=== PATIENT | male | born 1955 | race American Indian/Alaskan Native ===

== ENCOUNTER 2017-07-24 12:11 | Emergency (ER) | payer BC, OTHER ==
[2017-07-24 12:18] VITALS: BP 170/79
--- NOTE | 2017-07-24 12:39 | EDM.PDOC ---
ED HPI GENERAL MEDICAL PROBLEM - General Chief Complaint: Eye Problems Stated Complaint: [id number] SORE ABOVE EYELID Time Seen by Provider: 07/24/17 12:30 Source of Information: Reports: Patient History Limitations: Reports: No Limitations - History of Present Illness INITIAL COMMENTS - FREE TEXT/NARRATIVE: This 62 yo male patient reports to the ED with swelling of his right upper eyelid. The patient reports he has noticed these symptoms for the past 4 days. The patient called the Clinic, but there were no openings. Duration: Day(s): (4), Constant, Getting Worse Location: Reports: Face (right upper eyelid) Quality: Reports: Ache, Dull Severity: Moderate Improves with: Reports: None Worsens with: Reports: None Associated Symptoms: Reports: No Other Symptoms Right Eye Pain Score (Numeric/FACES): 2 - Related Data Allergies Allergy/AdvReac Type Severity Reaction Status Date / Time No Known Allergies Allergy Verified 07/24/17 12:17 Home Meds: Home Meds Lisinopril 10 mg PO DAILY 03/25/15 [History] Insulin Detemir [Levemir Flextouch] 20 unit SQ DAILY 10/17/15 [History] metFORMIN [Glucophage XR] 500 mg PO BIDMEALS 10/17/15 [History] Past Medical History HEENT History: Reports: None Cardiovascular History: Reports: Hypertension Gastrointestinal History: Reports: None Genitourinary History: Reports: None Musculoskeletal History: Reports: None Neurological History: Reports: None Psychiatric History: Reports: None Endocrine/Metabolic History: Reports: Diabetes, Type II Hematologic History: Reports: None Immunologic History: Reports: None Oncologic (Cancer) History: Reports: None Other Dermatologic History: has had a previous abcesss - Infectious Disease History Infectious Disease History: Reports: Chicken Pox - Past Surgical History Head Surgeries/Procedures: Reports: None Social & Family History - Family History Family Medical History: Noncontributory - Tobacco Use Smoking Status *Q: Current Every Day Smoker Years of Tobacco use: 40 Packs/Tins Daily: 0.5 Used Tobacco, but Quit: No Month Tobacco Last Used: 3 weeks ago Second Hand Smoke Exposure: Yes - Caffeine Use Caffeine Use: Reports: Soda - Alcohol Use Days Per Week of Alcohol Use: 1 Number of Drinks Per Day: 8 Total Drinks Per Week: 8 - Recreational Drug Use Recreational Drug Use: No - Living Situation & Occupation Living situation: Reports: with Family ED ROS GENERAL - Review of Systems Review Of Systems: ROS reveals no pertinent complaints other than HPI. ED EXAM GENERAL W FULL EYE - Physical Exam Exam: See Below Exam Limited By: No Limitations General Appearance: Alert, WD/WN, No Apparent Distress Eye Exam: Right Eye: Other (Hordoleum right upper eyelid), Bilateral Eye: EOMI, PERRL Eyelids: Right: Stye Conjunctiva & Sclera: Bilateral: Normal Appearance Cornea Exam: Bilateral: Normal Appearance Extraocular Movements: Bilateral: Intact Pupils: Normal Accommodation Pupillary Size: Bilateral: 4 mm Pupillary Reaction: Bilateral: Brisk Ears: Normal External Exam, Normal Canal, Hearing Grossly Normal, Normal TMs Nose: Normal Inspection, Normal Mucosa, No Blood Throat/Mouth: Normal Inspection, Normal Lips, Normal Teeth, Normal Gums, Normal Oropharynx, Normal Voice, No Airway Compromise Head: Atraumatic, Normocephalic Neck: Normal Inspection, Supple, Non-Tender, Full Range of Motion Respiratory/Chest: No Respiratory Distress, Lungs Clear, Normal Breath Sounds, No Accessory Muscle Use, Chest Non-Tender Cardiovascular: Normal Peripheral Pulses, Regular Rate, Rhythm, No Edema, No Gallop, No JVD, No Murmur, No Rub GI/Abdominal: Normal Bowel Sounds, Soft, Non-Tender, No Organomegaly, No Distention, No Abnormal Bruit, No Mass (Male) Exam: Deferred Rectal (Males) Exam: Deferred Back Exam: Normal Inspection, Full Range of Motion, NT Extremities: Normal Inspection, Normal Range of Motion, Non-Tender, Normal Capillary Refill, No Pedal Edema Neurological: Alert, Oriented, CN II-XII Intact, Normal Cognition, Normal Gait, Normal Reflexes, No Motor/Sensory Deficits Psychiatric: Normal Affect, Normal Mood Skin Exam: Warm, Dry, Intact, Normal Color, No Rash Lymphatic: No Adenopathy Course - Vital Signs Last Recorded V/S: Last Vital Signs Temp 36.4 C 07/24/17 12:17 Pulse 91 07/24/17 12:17 Resp 18 07/24/17 12:17 BP 170/79 H 07/24/17 12:17 Pulse Ox 97 07/24/17 12:17 Departure - Departure Time of Disposition: 12:37 Disposition: Home, Self-Care 01 Condition: Fair Clinical Impression: Hordeolum externum (stye) Qualifiers: Laterality: right Eyelid: upper Qualified Code(s): H00.011 - Hordeolum externum right upper eyelid - Discharge Information Instructions: Stye Care Plan Goals: The patient was advised of the examination results during the visit. The patient was encouraged to use a warm pack to his right upper eyelid over the next 4-7 days. If the patient has additional swelling, or further complications , the patient should follow-up with his primary care facility or return to the emergency department.
== END 2017-07-24 12:52 | disposition home or self-care (01) ==
LOC: DL.ED 12:11
DX: H00.011 Hordeolum externum right upper eyelid (principal); I10 Essential (primary) hypertension; E11.9 Type 2 diabetes mellitus without complications; F17.210 Nicotine dependence, cigarettes, uncomplicated; Z79.4 Long term (current) use of insulin; Z79.899 Other long term (current) drug therapy
CPT/HCPCS: 99283

== ENCOUNTER 2017-11-21 04:50 | Emergency (ER) | payer OTHER ==
[2017-11-21] MEDS ORDERED: Bacitracin/Polymyxin B Ophth Oint 3.5 GM Tube EYELF ONE (04:51)
[2017-11-21 04:59] VITALS: BP 146/71
[2017-11-21] MEDS ORDERED: Amoxicillin/Clavulanate K 875-125 MG Tab PO ONE (05:19)
--- NOTE | 2017-11-21 05:26 | EDM.PDOC ---
ED HPI GENERAL MEDICAL PROBLEM - General Chief Complaint: Eye Problems Stated Complaint: EYE [id number] Time Seen by Provider: 11/21/17 04:55 Source of Information: Reports: Patient History Limitations: Reports: No Limitations - History of Present Illness INITIAL COMMENTS - FREE TEXT/NARRATIVE: C/O swelling to left upper eyelid worsening since yesterday, Eyelid itchy and rubbing then lid started swelling - Related Data Allergies Allergy/AdvReac Type Severity Reaction Status Date / Time No Known Allergies Allergy Verified 07/24/17 12:17 Home Meds: Home Meds Lisinopril 10 mg PO DAILY 03/25/15 [History] Insulin Detemir [Levemir Flextouch] 20 unit SQ DAILY 10/17/15 [History] metFORMIN [Glucophage XR] 500 mg PO BIDMEALS 10/17/15 [History] Past Medical History HEENT History: Reports: None Cardiovascular History: Reports: Hypertension Gastrointestinal History: Reports: None Genitourinary History: Reports: None Musculoskeletal History: Reports: None Neurological History: Reports: None Psychiatric History: Reports: None Endocrine/Metabolic History: Reports: Diabetes, Type II Hematologic History: Reports: None Immunologic History: Reports: None Oncologic (Cancer) History: Reports: None Dermatologic History: Reports: Other (See Below) Other Dermatologic History: has had a previous abcesss - Infectious Disease History Infectious Disease History: Reports: Chicken Pox - Past Surgical History Head Surgeries/Procedures: Reports: None Social & Family History - Family History Family Medical History: Noncontributory - Tobacco Use Smoking Status *Q: Current Every Day Smoker Years of Tobacco use: 40 Packs/Tins Daily: 0.5 Used Tobacco, but Quit: No Month/Year Tobacco Last Used: 3 weeks ago Second Hand Smoke Exposure: Yes - Caffeine Use Caffeine Use: Reports: Soda - Alcohol Use Days Per Week of Alcohol Use: 1 Number of Drinks Per Day: 8 Total Drinks Per Week: 8 - Recreational Drug Use Recreational Drug Use: No - Living Situation & Occupation Living situation: Reports: with Family ED ROS GENERAL - Review of Systems Review Of Systems: ROS reveals no pertinent complaints other than HPI. ED EXAM GENERAL W FULL EYE - Physical Exam Exam: See Below Exam Limited By: No Limitations General Appearance: Alert, No Apparent Distress Eye Exam: Bilateral Eye: EOMI, PERRL, Other (left upper elid swollen red droooping) Eyelids: Left: Edema, Erythema Conjunctiva & Sclera: Bilateral: Normal Appearance Extraocular Movements: Bilateral: Intact Ears: Normal External Exam Nose: Normal Inspection Throat/Mouth: Normal Voice Neck: Full Range of Motion Respiratory/Chest: No Respiratory Distress Cardiovascular: Normal Peripheral Pulses, Regular Rate, Rhythm Neurological: Alert, Oriented, Normal Cognition Skin Exam: Warm, Dry, Intact, Erythema (left upper eyelid) Course - Vital Signs Last Recorded V/S: Last Vital Signs Temp 97.6 F 11/21/17 04:52 Pulse 79 11/21/17 04:52 Resp 19 11/21/17 04:52 BP 146/71 H 11/21/17 04:52 Pulse Ox 99 11/21/17 04:52 - Orders/Labs/Meds Meds: Medications Discontinued Medications Generic Name Dose Route Start Last Admin Trade Name Freq PRN Reason Stop Dose Admin Amoxicillin/Clavulanate Potassium 1 tab 11/21/17 05:19 11/21/17 05:25 Augmentin 875 Mg/125 Mg PO 11/21/17 05:20 1 tab ONETIME ONE Administration Bacitracin/Polymyxin B Sulfate Confirm 11/21/17 05:33 Polysporin Ophth Oint Administered 11/21/17 05:34 Dose 3.5 gm .ROUTE .STK-MED ONE Departure - Departure Time of Disposition: 05:23 Disposition: Home, Self-Care 01 Condition: Good Clinical Impression: Blepharitis of eyelid of left eye Qualifiers: Blepharitis type: unspecified type Eyelid: upper Qualified Code(s): H01.004 - Unspecified blepharitis left upper eyelid - Discharge Information Instructions: Blepharitis, [id number] Forms: ED Department Discharge Additional Instructions: Continue warm pack 3 times daily Augmentin 875/125 one twice daily for one week polymyxinB/Trimetoprim eye ointment , apply thin layer to upper lid three times daily for 5 days follow up if increased swelling or fever
[2017-11-21] MEDS ORDERED: Bacitracin/Polymyxin B Ophth Oint 3.5 GM Tube ONE (05:33)
== END 2017-11-21 05:40 | disposition home or self-care (01) ==
LOC: DL.ED 04:50
DX: H01.004 Unspecified blepharitis left upper eyelid (principal); I10 Essential (primary) hypertension; E11.9 Type 2 diabetes mellitus without complications; F17.210 Nicotine dependence, cigarettes, uncomplicated; Z79.899 Other long term (current) drug therapy; Z79.4 Long term (current) use of insulin
CPT/HCPCS: 99282; A9270

== ENCOUNTER 2020-05-17 17:00 | Emergency (ER) | payer MEDICAID, OTHER | END 2020-05-17 17:50 | disposition left against medical advice (07) | LOC: DL.ED 17:00 | DX: Z53.21 Procedure and treatment not carried out due to patient leaving prior to being seen by health care provider (principal) ==

== ENCOUNTER 2020-05-23 16:42 | Emergency (ER) | payer MEDICAID ==
[2020-05-23 16:55] VITALS: BP 162/68; PULSE 108
--- NOTE | 2020-05-23 17:43 | EDM.PDOC ---
ED HPI GENERAL MEDICAL PROBLEM - General Chief Complaint: General Time Seen by Provider: 05/23/20 17:50 Source of Information: Reports: Patient, EMS, EMS Notes Reviewed, RN, RN Notes Reviewed - History of Present Illness INITIAL COMMENTS - FREE TEXT/NARRATIVE: Patient presents to the ED via EMS for cough and fever. Per the patient, he tested positive for COVID on 05/18/20. He attests to persistent cough, headache, fever, and muscle aches. He states these symptoms began about seven days ago, 05/16/20. He denies chest pain, shortness of breath, palpitations, nausea, vomiting, or diarrhea. He states he has taken Tylenol 500mg x1 for headache/fever without alleviation of symptoms. - Related Data Allergies Allergy/AdvReac Type Severity Reaction Status Date / Time No Known Allergies Allergy Verified 05/23/20 16:50 Home Meds: Home Meds Insulin Detemir [Levemir Flextouch] 42 unit SQ DAILY 10/17/15 [History] metFORMIN [Glucophage XR] 500 mg PO BIDMEALS 10/17/15 [History] Losartan [Cozaar] 25 mg PO DAILY 05/23/20 [History] Past Medical History HEENT History: Reports: None Cardiovascular History: Reports: Hypertension Respiratory History: Reports: None Gastrointestinal History: Reports: None Genitourinary History: Reports: None Musculoskeletal History: Reports: None Neurological History: Reports: None Psychiatric History: Reports: None Endocrine/Metabolic History: Reports: Diabetes, Type II Hematologic History: Reports: None Immunologic History: Reports: None Oncologic (Cancer) History: Reports: None Dermatologic History: Reports: Other (See Below) Other Dermatologic History: has had a previous abcesss - Infectious Disease History Infectious Disease History: Reports: TB - Past Surgical History Head Surgeries/Procedures: Reports: None Social & Family History - Family History Family Medical History: Noncontributory - Tobacco Use Tobacco Use Status *Q: Current Some Day Tobacco User Years of Tobacco use: 30 Packs/Tins Daily: 0.1 - Caffeine Use Caffeine Use: Reports: Tea - Recreational Drug Use Recreational Drug Use: No - Living Situation & Occupation Living situation: Reports: with Family ED ROS GENERAL - Review of Systems Review Of Systems: Comprehensive ROS is negative, except as noted in HPI. ED EXAM, GENERAL - Physical Exam Exam: See Below Exam Limited By: No Limitations General Appearance: Alert, WD/WN, Mild Distress Eye Exam: Bilateral Eye: EOMI, Normal Inspection, PERRL Nose: Normal Inspection Throat/Mouth: Normal Inspection, Normal Voice, No Airway Compromise Neck: Normal Inspection, Supple, Non-Tender, Full Range of Motion, Lymphadenopathy (L). No: Lymphadenopathy (R) Respiratory/Chest: No Accessory Muscle Use, Chest Non-Tender, Decreased Breath Sounds, Accessory Muscle Use. No: Crackles, Rales, Rhonchi, Wheezing, Stridor Cardiovascular: Regular Rate, Rhythm, No Edema, No Gallop, No Murmur, No Rub, Tachycardia Peripheral Pulses: 2+: Radial (L), Radial (R) GI/Abdominal: Normal Bowel Sounds, Soft, Non-Tender, No Distention, No Mass (Male) Exam: Deferred Rectal (Males) Exam: Deferred Back Exam: Normal Inspection, Full Range of Motion. No: CVA Tenderness (L), CVA Tenderness (R) Extremities: Normal Inspection, Normal Range of Motion, Non-Tender, No Pedal Edema, Normal Capillary Refill Neurological: Oriented, CN II-XII Intact Skin Exam: Warm, Dry, Intact, Normal Color, No Rash. No: Ecchymosis, Erythema, Pallor, Petechiae, Rash Course - Vital Signs Last Recorded V/S: Last Vital Signs Temp 99.2 F 05/23/20 16:51 Pulse 108 H 05/23/20 16:51 Resp 18 05/23/20 16:51 BP 162/68 H 05/23/20 16:51 Pulse Ox 94 L 05/23/20 16:51 - Orders/Labs/Meds Orders: Active Orders 24 hr Category Date Time Status CULTURE BLOOD [BC] Stat Lab 05/23/20 17:15 Received UA W/ELISABETH RFLX IF INDICATED [URIN] Stat Lab 05/23/20 16:59 Ordered Labs: Laboratory Tests 05/23/20 05/23/20 05/23/20 Range/Units 17:15 17:15 17:15 WBC 5.8 (5.0-10.0) 10^3/uL RBC 4.64 (4.6-6.2) 10^6/uL Hgb 14.8 (14.0-18.0) g/dL Hct 40.8 (40.0-54.0) % MCV 87.9 (80-100) fL MCH 31.9 (27.0-34.0) pg MCHC 36.3 H (33.0-35.0) g/dL Plt Count 167 D (150-450) 10^3/uL Neut % (Auto) 73.6 (42.2-75.2) % Lymph % (Auto) 17.7 L (20.5-50.1) % [place] % (Auto) 8.4 H (2-8) % Eos % (Auto) 0.0 L (1.0-3.0) % Baso % (Auto) 0.3 (0.0-1.0) % Sodium 132 L (136-145) mmol/L Potassium 3.7 (3.5-5.1) mmol/L Chloride 95 L (98-107) mmol/L Carbon Dioxide 27 (21-32) mmol/L Anion Gap 13.7 H (7-13) mEq/L BUN 10 (7-18) mg/dL Creatinine 0.81 (0.70-1.30) mg/dL Est Cr Clr Drug Dosing 102.46 mL/min Estimated GFR (MDRD) > 60 BUN/Creatinine Ratio 12.3 (No establ ref range) Glucose 199 H (74-99) mg/dL Lactic Acid 1.3 (0.4-2.0) mmol/L Calcium 8.0 L (8.5-10.1) mg/dL Total Bilirubin 0.7 (0.2-1.0) mg/dL AST 61 H (15-37) U/L ALT 59 (16-63) U/L Alkaline Phosphatase 50 (46-116) U/L Total Protein 7.3 (6.4-8.2) g/dL Albumin 2.8 L (3.4-5.0) g/dL Globulin 4.5 Albumin/Globulin Ratio 0.62 Departure - Departure Time of Disposition: 18:36 Disposition: Home, Self-Care 01 Clinical Impression: COVID-19, Cough with exposure to COVID-19 virus - Discharge Information *PRESCRIPTION DRUG MONITORING PROGRAM REVIEWED*: Not Applicable *COPY OF PRESCRIPTION DRUG MONITORING REPORT IN PATIENT DAVID: Not Applicable Instructions: COVID-19 Frequently Asked Questions, COVID-19: How to Protect Yourself and Others - CDC Forms: ED Department Discharge Additional Instructions: Rx: Tessalon Perles Drink plenty of fluids to stay hydrated. Eat small, frequent meals. Take Tylenol 1000mg (1gram) every six hours for fever. Take Motrin 400mg every six hours for fever. Sepsis Event Note (ED) - Evaluation Sepsis Screening Result: No Definite Risk - Focused Exam Vital Signs: Vital Signs Temp Pulse Resp BP Pulse Ox 05/23/20 16:51 99.2 F 108 H 18 162/68 H 94 L - My Orders Last 24 Hours: My Active Orders 05/23/20 16:59 UA W/ELISABETH RFLX IF INDICATED [URIN] Stat 05/23/20 17:15 CULTURE BLOOD [BC] Stat - Assessment/Plan Last 24 Hours: My Active Orders 05/23/20 16:59 UA W/ELISABETH RFLX IF INDICATED [URIN] Stat 05/23/20 17:15 CULTURE BLOOD [BC] Stat
[2020-05-23 17:51] LABS: ANION GAP 13.7 mEq/L (7-13); CHLORIDE,CL 95 mmol/L (98-107); SODIUM,NA 132 mmol/L (136-145)
[2020-05-23] MEDS ORDERED: Dexamethasone 4 MG/ML SDV IVPUSH ONE (18:25)
[2020-05-23] MEDS ORDERED: Ondansetron 4 MG Tab.DIS PO ONE (18:50)
[2020-05-23] MEDS ORDERED: Ondansetron 4 MG Tab.DIS ONE (18:51)
== END 2020-05-23 19:00 | disposition home or self-care (01) ==
LOC: DL.ED 16:42
DX: U07.1 COVID-19 (principal); I10 Essential (primary) hypertension; E11.9 Type 2 diabetes mellitus without complications; F17.210 Nicotine dependence, cigarettes, uncomplicated; Z79.4 Long term (current) use of insulin; Z79.899 Other long term (current) drug therapy
CPT/HCPCS: 36415; 80053; 83605; 85025; 87040; 96374; 99283-25; A9270-GY; J1100

== ENCOUNTER 2020-05-28 19:47 | Emergency (ER) | payer MEDICAID ==
--- NOTE | 2020-05-28 19:55 | EDM.PDOC ---
ED HPI GENERAL MEDICAL PROBLEM - General Stated Complaint: AMBULANCE - COVID Time Seen by Provider: 05/28/20 19:50 Source of Information: Reports: Patient, EMS History Limitations: Reports: Altered Mental Status - History of Present Illness INITIAL COMMENTS - FREE TEXT/NARRATIVE: EMS called to pt altered mentation with h/o covid and at scene pt afrile with O2 sat 88% and breathing rapid, ER records show pt here 5 days ago for positive covid on eval and d/c. no family member here to give last known normal mental state. pt follow command but left side not moving. - Related Data Allergies Allergy/AdvReac Type Severity Reaction Status Date / Time No Known Allergies Allergy Verified 05/23/20 16:50 Home Meds: Home Meds Insulin Detemir [Levemir Flextouch] 42 unit SQ DAILY 10/17/15 [History] metFORMIN [Glucophage XR] 500 mg PO BIDMEALS 10/17/15 [History] Losartan [Cozaar] 25 mg PO DAILY 05/23/20 [History] Past Medical History HEENT History: Reports: None Cardiovascular History: Reports: Hypertension Respiratory History: Reports: None Gastrointestinal History: Reports: None Genitourinary History: Reports: None Musculoskeletal History: Reports: None Neurological History: Reports: None Psychiatric History: Reports: None Endocrine/Metabolic History: Reports: Diabetes, Type II Hematologic History: Reports: None Immunologic History: Reports: None Oncologic (Cancer) History: Reports: None Dermatologic History: Reports: Other (See Below) Other Dermatologic History: has had a previous abcesss - Infectious Disease History Infectious Disease History: Reports: Chicken Pox - Past Surgical History Head Surgeries/Procedures: Reports: None Social & Family History - Family History Family Medical History: Noncontributory - Caffeine Use Caffeine Use: Reports: Soda - Living Situation & Occupation Living situation: Reports: with Family ED ROS GENERAL - Review of Systems Review Of Systems: Comprehensive ROS is negative, except as noted in HPI. - Physical Exam Exam: See Below Exam Limited By: No Limitations General Appearance: Alert, WD/WN, No Apparent Distress, Other (confused able to follow commands, unable move left arm-leg) Eye Exam: Bilateral Eye: PERRL (pupils ER @ 4mm) Ears: Hearing Grossly Normal Throat/Mouth: Normal Voice, No Airway Compromise Head Exam: Atraumatic Neck: Non-Tender, Full Range of Motion Respiratory/Chest: No Accessory Muscle Use, Rhonchi, Other (tachypnoeic). No: Decreased Breath Sounds Cardiovascular: Regular Rate, Rhythm GI/Abdominal: Soft, Non-Tender (Male) Exam: Deferred Rectal (Males) Exam: Deferred Neuro Exam (Abbreviated): Alert, Slow to Respond, Other (left hemiparalysis) Psychiatric: Flat Affect Skin Exam: Warm, Dry, Normal Color Course - Vital Signs Last Recorded V/S: Last Vital Signs Temp 36.5 C 05/28/20 19:43 Pulse 101 H 05/28/20 19:43 Resp 42 H 05/28/20 19:43 BP 137/69 05/28/20 19:43 Pulse Ox 94 L 05/28/20 19:43 - Orders/Labs/Meds Orders: Active Orders 24 hr Category Date Time Status EKG 12 Lead [EKG Documentation Completion] [RC] ROUTINE Care 05/28/20 21:05 Active DRUG SCREEN URINE BIORAD [URCHEM] Stat Lab 05/28/20 19:36 Ordered UA RFX ELISABETH AND CULT IF INDIC [URIN] Stat Lab 05/28/20 19:36 Ordered Sodium Chloride 0.9% [Normal Saline] 1,000 ml Med 05/28/20 20:45 Active IV ASDIRECTED Medication Orders Sodium Chloride (Normal Saline) 1,000 mls @ 200 mls/hr IV ASDIRECTED ANDRA Last Admin: 05/28/20 20:51 Dose: 200 mls/hr Documented by: BARRY Labs: Laboratory Tests 05/28/20 05/28/20 Range/Units 19:50 19:50 WBC 9.3 (5.0-10.0) 10^3/uL RBC 4.59 L (4.6-6.2) 10^6/uL Hgb 14.4 (14.0-18.0) g/dL Hct 40.0 (40.0-54.0) % MCV 87.1 (80-100) fL MCH 31.4 (27.0-34.0) pg MCHC 36.0 H (33.0-35.0) g/dL Plt Count 340 D (150-450) 10^3/uL Neut % (Auto) 86.6 H (42.2-75.2) % Lymph % (Auto) 7.7 L (20.5-50.1) % [place] % (Auto) 3.8 (2-8) % Eos % (Auto) 0.8 L (1.0-3.0) % Baso % (Auto) 1.1 H (0.0-1.0) % Add Manual Diff Yes Neutrophils % (Manual) 82 H (42-75) % Band Neutrophils % 5 % Lymphocytes % (Manual) 9 L (20-50) % Monocytes % (Manual) 3 (2-8) % Eosinophils % (Manual) 1 (1-3) % Atypical Lymphocytes Few Sodium 124 L (136-145) mmol/L Potassium 3.6 (3.5-5.1) mmol/L Chloride 87 L (98-107) mmol/L Carbon Dioxide 29 (21-32) mmol/L Anion Gap 11.6 (7-13) mEq/L BUN 12 (7-18) mg/dL Creatinine 0.79 (0.70-1.30) mg/dL Est Cr Clr Drug Dosing TNP Estimated GFR (MDRD) > 60 BUN/Creatinine Ratio 15.2 (No establ ref range) Glucose 217 H (74-99) mg/dL Calcium 8.1 L (8.5-10.1) mg/dL Total Bilirubin 1.4 H (0.2-1.0) mg/dL AST 43 H (15-37) U/L ALT 35 (16-63) U/L Alkaline Phosphatase 57 (46-116) U/L Troponin I < 0.017 (0.000-0.056) ng/mL Total Protein 7.2 (6.4-8.2) g/dL Albumin 2.0 L (3.4-5.0) g/dL Globulin 5.2 Albumin/Globulin Ratio 0.38 Ethyl Alcohol < 3 (0) mg/dL Meds: Medications Generic Name Dose Route Start Last Admin Trade Name Freq PRN Reason Stop Dose Admin Sodium Chloride 1,000 mls @ 200 mls/hr 05/28/20 20:45 05/28/20 20:51 Normal Saline IV 200 mls/hr ASDIRECTED ANDRA Administration Discontinued Medications Generic Name Dose Route Start Last Admin Trade Name Freq PRN Reason Stop Dose Admin Dexamethasone 12 mg 05/28/20 20:49 05/28/20 20:54 Dexamethasone IVPUSH 05/28/20 20:50 12 mg ONETIME ONE Administration - Re-Assessments/Exams Free Text/Narrative Re-Assessment/Exam: 05/28/20 21:[address] Johnston @ [facility] who kindly accepted pt. 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, Hypoxia, Hyponatremia - Discharge Information Forms: Interfacility Transfer EMTALA Sepsis Event Note (ED) - Focused Exam Vital Signs: Vital Signs Temp Pulse Resp BP Pulse Ox 05/28/20 19:43 36.5 C 101 H 42 H 137/69 94 L - My Orders Last 24 Hours: My Active Orders 05/28/20 19:36 DRUG SCREEN URINE BIORAD [URCHEM] Stat UA RFX ELISABETH AND CULT IF INDIC [URIN] Stat 05/28/20 20:45 Sodium Chloride 0.9% [Normal Saline] 1,000 ml IV ASDIRECTED 05/28/20 21:05 EKG 12 Lead [EKG Documentation Completion] [RC] ROUTINE - Assessment/Plan Last 24 Hours: My Active Orders 05/28/20 19:36 DRUG SCREEN URINE BIORAD [URCHEM] Stat UA RFX ELISABETH AND CULT IF INDIC [URIN] Stat 05/28/20 20:45 Sodium Chloride 0.9% [Normal Saline] 1,000 ml IV ASDIRECTED 05/28/20 21:05 EKG 12 Lead [EKG Documentation Completion] [RC] ROUTINE
[2020-05-28 20:24] LABS: ANION GAP 11.6 mEq/L (7-13); CHLORIDE,CL 87 mmol/L (98-107); SODIUM,NA 124 mmol/L (136-145)
[2020-05-28 20:25] VITALS: BP 137/69; PULSE 101
--- NOTE | 2020-05-28 20:34 | CT ---
PROCEDURE INFORMATION: Exam: CT Head Without Contrast Exam date and time: 05/28/2020 7:52 PM Age: 65 years old Clinical indication: Other: Possible stroke; Additional info: Left hemiparalysis, SOB, R/O covid pneumonia TECHNIQUE: Imaging protocol: Computed tomography of the head without contrast. Radiation optimization: All CT scans at this facility use at least one of these dose optimization techniques: automated exposure control; mA and/or kV adjustment per patient size (includes targeted exams where dose is matched to clinical indication); or iterative reconstruction. Other technique: STROKE PROTOCOL was implemented. COMPARISON: No relevant prior studies available. FINDINGS: Brain: There there is mild diffuse nonspecific white matter lucency. Differential diagnosis includes demyelination, gliosis, small vessel disease. Small vessel disease is favored. Patchy lucency with loss of andrade-white differentiation is questioned in the occipital lobes bilaterally. Bilateral occipital lobe infarcts cannot be excluded. There is no evidence of acute hemorrhage. No anterior circulation acute or subacute infarct is suspect. No midline shift. Cerebral ventricles: There is mild generalized cerebral volume loss. Bones/joints: The temporal bones are symmetric and unremarkable. Left nasal bone fracture may be chronic. Paranasal sinuses: The visualized paranasal sinuses are normal. Mastoid air cells: Mastoid air cells well aerated. Soft tissues: No acute soft tissue abnormalities are identified. IMPRESSION: 1. There is no evidence of acute hemorrhage. 2. Loss of andrade-white differentiation suspect in the occipital lobes bilaterally. Bioccipital infarct cannot be ruled out. Consider MR when possible. 3. Other findings as described ASSESSMENT: ASPECTS ([place] Stroke Program Early CT Score) is 10. The
--- NOTE | 2020-05-28 20:35 | CT ---
PROCEDURE INFORMATION: Exam: CT Chest Without Contrast Exam date and time: 05/28/2020 7:52 PM Age: 65 years old Clinical indication: Shortness of breath; Additional info: Left hemiparalysis, SOB, R/O covid pneumonia TECHNIQUE: Imaging protocol: Computed tomography of the chest without contrast. Radiation optimization: All CT scans at this facility use at least one of these dose optimization techniques: automated exposure control; mA and/or kV adjustment per patient size (includes targeted exams where dose is matched to clinical indication); or iterative reconstruction. COMPARISON: No relevant prior studies available. FINDINGS: Lungs: There is extensive bilateral ground-glass opacification most pronounced in the mid and lower lungs where there are large areas of confluent ground-glass opacity. Pleural space: Extremely tiny right pleural effusion. Heart: Unremarkable. No cardiomegaly. No pericardial effusion. Aorta: Unremarkable. No aortic aneurysm. Lymph nodes: Calcified mediastinal and right hilar lymph nodes suggest old granulomatous disease. Few scattered nonenlarged thoracic lymph nodes. Liver: Hepatic steatosis. Tiny calcified hepatic and splenic granulomata. Bones/joints: Unremarkable. No acute fracture. Soft tissues: Unremarkable. IMPRESSION: 1. Extensive bilateral predominantly peripheral ground-glass opacification as above. Findings compatible with extensive multifocal pneumonia. Findings are often seen with COVID-19 infection although other infections can have this appearance. 2. Old granulomatous disease.
[2020-05-28] MEDS ORDERED: Sodium Chloride 0.9% 1,000 ML IV SCH (20:45)
[2020-05-28] MEDS ORDERED: Dexamethasone 4 MG/ML SDV IVPUSH ONE (20:49)
== END 2020-05-28 22:13 ==
LOC: DL.ED 19:47
DX: U07.1 COVID-19 (principal); J12.89 Other viral pneumonia; I63.9 Cerebral infarction, unspecified; R09.02 Hypoxemia; E87.1 Hypo-osmolality and hyponatremia; I10 Essential (primary) hypertension; E11.9 Type 2 diabetes mellitus without complications; Z79.4 Long term (current) use of insulin; Z79.899 Other long term (current) drug therapy
CPT/HCPCS: 36415; 70450; 71250; 80053; 80307; 82962; 84484; 85025; 93005; 96374; 99285; J1100; J7030; 99284

== ENCOUNTER 2020-07-28 15:14 | Emergency (ER) | payer MEDICAID ==
[2020-07-28 16:11] VITALS: BP 115/73; PULSE 102
[2020-07-28] MEDS ORDERED: Clindamycin Phosphate 900 MG in Sodium Chloride 0.9% 100 ML IV ONE (16:47)
--- NOTE | 2020-07-28 16:47 | EDM.PDOC ---
ED HPI GENERAL MEDICAL PROBLEM - General Chief Complaint: Skin Complaint Stated Complaint: BOIL IN HIS BEHIND Time Seen by Provider: 07/28/20 16:45 Source of Information: Reports: Patient History Limitations: Reports: No Limitations - History of Present Illness INITIAL COMMENTS - FREE TEXT/NARRATIVE: onset draining boil left buttocks 5 days ago. been using hot packs daily. lerft buttock Pain Score (Numeric/FACES): 6 - Related Data Allergies Allergy/AdvReac Type Severity Reaction Status Date / Time No Known Allergies Allergy Verified 07/28/20 16:16 Home Meds: Home Meds Insulin Detemir [Levemir Flextouch] 42 unit SQ DAILY 10/17/15 [History] metFORMIN [Glucophage XR] 500 mg PO BIDMEALS 10/17/15 [History] Losartan [Cozaar] 25 mg PO DAILY 05/23/20 [History] Past Medical History HEENT History: Reports: None Cardiovascular History: Reports: Hypertension Respiratory History: Reports: None Gastrointestinal History: Reports: None Genitourinary History: Reports: None Musculoskeletal History: Reports: None Neurological History: Reports: CVA, Other (See Below) Other Neuro History: left arm flaccid Psychiatric History: Reports: None Endocrine/Metabolic History: Reports: Diabetes, Type II Hematologic History: Reports: None Immunologic History: Reports: None Oncologic (Cancer) History: Reports: None Dermatologic History: Reports: Other (See Below) Other Dermatologic History: has had a previous abcesss - Infectious Disease History Infectious Disease History: Reports: Chicken Pox, Novel Coronavirus Other Infectious Disease History: covid on 05-18-20 - Past Surgical History Head Surgeries/Procedures: Reports: None Social & Family History - Family History Family Medical History: No Pertinent Family History - Tobacco Use Tobacco Use Status *Q: Never Tobacco User Second Hand Smoke Exposure: No - Caffeine Use Caffeine Use: Reports: Coffee - Recreational Drug Use Recreational Drug Use: No - Living Situation & Occupation Living situation: Reports: with Family ED ROS GENERAL - Review of Systems Review Of Systems: Comprehensive ROS is negative, except as noted in HPI. ED EXAM, SKIN/RASH Exam: See Below Exam Limited By: No Limitations General Appearance: Alert, WD/WN, Mild Distress, Other (discomfort) Ears: Hearing Grossly Normal Throat/Mouth: Normal Voice, No Airway Compromise Head: Atraumatic Neck: Non-Tender, Full Range of Motion Respiratory/Chest: No Respiratory Distress Cardiovascular: Regular Rate, Rhythm GI/Abdominal: Soft, Non-Tender (Male) Exam: Deferred Rectal (Males) Exam: Deferred Neurological: Alert, Oriented, Normal Cognition, Other (h/o prior CVA) Psychiatric: Normal Affect, Normal Mood Skin: Warm, Dry, Normal Color Location, Skin: Other (left buttock) Associated features: Warmth, Tenderness, Inflammation, Crusting, Weeping Lymphatic: No Adenopathy Course - Vital Signs Last Recorded V/S: Last Vital Signs Temp 37.1 C 07/28/20 16:09 Pulse 102 H 07/28/20 16:09 Resp 20 07/28/20 16:09 BP 115/73 07/28/20 16:09 Pulse Ox 96 07/28/20 16:09 - Orders/Labs/Meds Orders: Active Orders 24 hr Category Date Time Status CULTURE BLOOD [BC] Stat Lab 07/28/20 16:55 Received Sodium Chloride 0.9% [Normal Saline] 1,000 ml Med 07/28/20 17:00 Active IV ASDIRECTED Medication Orders Sodium Chloride (Normal Saline) 1,000 mls @ 500 mls/hr IV ASDIRECTED ANDRA Last Admin: 07/28/20 17:02 Dose: 500 mls/hr Documented by: WILIAN Labs: Laboratory Tests 07/28/20 07/28/20 07/28/20 Range/Units 16:55 16:55 16:55 WBC 10.6 H (5.0-10.0) 10^3/uL RBC 4.39 L (4.6-6.2) 10^6/uL Hgb 13.9 L (14.0-18.0) g/dL Hct 39.4 L (40.0-54.0) % MCV 89.7 (80-100) fL MCH 31.7 (27.0-34.0) pg MCHC 35.3 H (33.0-35.0) g/dL Plt Count 397 (150-450) 10^3/uL Neut % (Auto) 70.0 (42.2-75.2) % Lymph % (Auto) 18.8 L (20.5-50.1) % [place] % (Auto) 8.6 H (2-8) % Eos % (Auto) 2.1 (1.0-3.0) % Baso % (Auto) 0.5 (0.0-1.0) % Sodium 140 D (136-145) mmol/L Potassium 3.1 L (3.5-5.1) mmol/L Chloride 101 D (98-107) mmol/L Carbon Dioxide 30 (21-32) mmol/L Anion Gap 12.1 (7-13) mEq/L BUN 6 L (7-18) mg/dL Creatinine 0.59 L (0.70-1.30) mg/dL Est Cr Clr Drug Dosing 140.66 mL/min Estimated GFR (MDRD) > 60 BUN/Creatinine Ratio 10.2 (No establ ref range) Glucose 92 (74-99) mg/dL Lactic Acid 0.8 (0.4-2.0) mmol/L Calcium 8.5 (8.5-10.1) mg/dL Total Bilirubin 0.5 (0.2-1.0) mg/dL AST 25 (15-37) U/L ALT 21 (16-63) U/L Alkaline Phosphatase 67 (46-116) U/L Total Protein 7.4 (6.4-8.2) g/dL Albumin 3.0 L (3.4-5.0) g/dL Globulin 4.4 Albumin/Globulin Ratio 0.68 Ketones Negative Meds: Medications Generic Name Dose Route Start Last Admin Trade Name Freq PRN Reason Stop Dose Admin Sodium Chloride 1,000 mls @ 500 mls/hr 07/28/20 17:00 07/28/20 17:02 Normal Saline IV 500 mls/hr ASDIRECTED ANDRA Administration Discontinued Medications Generic Name Dose Route Start Last Admin Trade Name Freq PRN Reason Stop Dose Admin Clindamycin Phosphate 900 mg/ 106 mls @ 200 mls/hr 07/28/20 16:47 07/28/20 17:04 Sodium Chloride IV 07/28/20 17:18 200 mls/hr ONETIME ONE Administration - Re-Assessments/Exams Free Text/Narrative Re-Assessment/Exam: 07/28/20 17:41 results discussed with pt who states he can continue hot packs and boil is only slightly painful. Departure - Departure Time of Disposition: 17:42 Disposition: Home, Self-Care 01 Condition: Good Clinical Impression: Abscess - Discharge Information Instructions: Skin Abscess, [id number] Forms: ED Department Discharge Additional Instructions: 1) continue hot packs to boil 2) take tylenol or motrin for discomfort 3) follow up at clinic rx given; clindamycin 300mg qid x 40 Sepsis Event Note (ED) - Evaluation Sepsis Screening Result: No Definite Risk - Focused Exam Vital Signs: Vital Signs Temp Pulse Resp BP Pulse Ox 07/28/20 16:09 37.1 C 102 H 20 115/73 96 - My Orders Last 24 Hours: My Active Orders 07/28/20 16:55 CULTURE BLOOD [BC] Stat 07/28/20 17:00 Sodium Chloride 0.9% [Normal Saline] 1,000 ml IV ASDIRECTED - Assessment/Plan Last 24 Hours: My Active Orders 07/28/20 16:55 CULTURE BLOOD [BC] Stat 07/28/20 17:00 Sodium Chloride 0.9% [Normal Saline] 1,000 ml IV ASDIRECTED
[2020-07-28] MEDS ORDERED: Sodium Chloride 0.9% 1,000 ML IV SCH (17:00)
[2020-07-28 17:21] LABS: ANION GAP 12.1 mEq/L (7-13); CHLORIDE,CL 101 mmol/L (98-107); SODIUM,NA 140 mmol/L (136-145)
== END 2020-07-28 17:59 | disposition home or self-care (01) ==
LOC: DL.ED 15:14
DX: L02.31 Cutaneous abscess of buttock (principal); E11.9 Type 2 diabetes mellitus without complications; Z86.73 Personal history of transient ischemic attack (TIA), and cerebral infarction without residual deficits; I10 Essential (primary) hypertension; Z79.4 Long term (current) use of insulin; Z79.899 Other long term (current) drug therapy
CPT/HCPCS: 36415; 80053; 82009; 83605; 85025; 87040; 96365; 99283; J3490; J7030; J7050

== ENCOUNTER 2024-03-24 10:12 | Inpatient (IN) | payer MEDICARE, MEDICAID ==
[2024-03-24] MEDS ORDERED: Naloxone 2 MG/2 ML Syringe IVPUSH PRN (14:23)
[2024-03-24] MEDS ORDERED: Docusate Sodium 100 MG Cap PO PRN (14:23)
[2024-03-24] MEDS ORDERED: Ondansetron 4 MG Tab.DIS PO PRN (14:23)
[2024-03-24] MEDS ORDERED: oxyCODONE 5 MG Tab PO PRN (14:23)
[2024-03-24] MEDS ORDERED: Morphine 2 MG/ML SYRINGE IVPUSH PRN (14:23)
[2024-03-24 14:25] LABS: BASOPHILS PERCENT AUTO 0.5 % (0.0-1.0); EOSINOPHILS PERCENT AUTO 2.1 % (1.0-3.0); HEMATOCRIT 39.6 % (40.0-54.0); HEMOGLOBIN 12.8 g/dL (14.0-18.0); MEAN CORPUSCULAR HGB CONC 32.3 g/dL (33.0-35.0); MEAN CORPUSCULAR VOLUME 92.7 fL (80-100); MONOCYTES PERCENT AUTO 9.1 % (2-8); NEUTROPHILS PERCENT AUTO 72.3 % (42.2-75.2); PLATELET COUNT,PLT 644 10^3/uL (150-450); RED BLOOD CELL COUNT 4.27 10^6/uL (4.6-6.2); WHITE BLOOD CELL COUNT,WBC 10.8 10^3/uL (5.0-10.0)
[2024-03-24 14:48] LABS: A/G RATIO 0.52; ALBUMIN 2.7 g/dL (3.4-5.0); ANION GAP 10.3 mEq/L (7-13); BILIRUBIN TOTAL 0.3 mg/dL (0.2-1.0); BUN/CREATININE RATIO 11.3 (No establ ref range); C-REACTIVE PROTEIN 1.18 ng/dL (<=0.50); CREATININE 0.97 mg/dL (0.70-1.30); EST CRCL DRUG DOSING (CG) 83.52 mL/min; POTASSIUM,K 4.3 mmol/L (3.5-5.1); PROTEIN TOTAL,TP 7.9 g/dL (6.4-8.2)
[2024-03-24 15:19] LABS: SEDIMENTATION RATE MANUAL 72 mm/hr (0-15)
[2024-03-24] MEDS: Piperacillin/Tazobactam 4.5 GM in Sodium Chloride 0.9% 100 ML IV ONE (15:50)
[2024-03-24] MEDS: Piperacillin/Tazobactam 4.5 GM Vial IV SCH (15:50)
[2024-03-24] MEDS: Sodium Chloride 0.9% 1,000 ML IV SCH (15:56)
[2024-03-24] MEDS: atorvaSTATin 20 MG Tab PO SCH (20:14)
[2024-03-24] MEDS: Apixaban 5 MG Tab PO SCH (20:14)
[2024-03-24] MEDS: Insulin Glarg,Human.Rec.Analog 100 Unit/ML 10 ML Vial SUBCUT SCH (20:25)
[2024-03-24] MEDS: SODIUM HYPOCHLORITE TOP SCH (20:33)
[2024-03-24] MEDS: Piperacillin/Tazobactam 4.5 GM in Sodium Chloride 0.9% 100 ML IV SCH (21:19)
[2024-03-25] MEDS ORDERED: metFORMIN 500 MG Tab PO SCH (06:00)
[2024-03-25] MEDS ORDERED: Insulin Glarg,Human.Rec.Analog 100 Unit/ML 10 ML Vial SUBCUT SCH (06:00)
[2024-03-25] MEDS: Sertraline 50 MG Tab PO SCH (07:59)
[2024-03-25] MEDS: metFORMIN 500 MG Tab PO SCH (07:59)
[2024-03-25] MEDS: Insulin Glarg,Human.Rec.Analog 100 Unit/ML 10 ML Vial SUBCUT SCH (08:04)
[2024-03-26] MEDS: Melatonin 3 MG Tab PO PRN (20:47)
[2024-03-28] MEDS: Loperamide 2 MG Cap PO ONE (09:48)
[2024-03-30 09:14] LABS: HEMATOCRIT 37.2 % (40.0-54.0); HEMOGLOBIN 12.2 g/dL (14.0-18.0); MEAN CORPUSCULAR HEMOGLOBIN 30.3 pg (27.0-34.0); MEAN CORPUSCULAR HGB CONC 32.8 g/dL (33.0-35.0); MEAN CORPUSCULAR VOLUME 92.3 fL (80-100); RED BLOOD CELL COUNT 4.03 10^6/uL (4.6-6.2)
[2024-03-30 09:32] LABS: ANION GAP 9.2 mEq/L (7-13); CALCIUM 8.5 mg/dL (8.5-10.1); CREATININE 0.76 mg/dL (0.70-1.30); EST CRCL DRUG DOSING (CG) 106.59 mL/min; POTASSIUM,K 4.2 mmol/L (3.5-5.1)
[2024-03-31 07:16] LABS: BASOPHILS PERCENT AUTO 0.7 % (0.0-1.0); EOSINOPHILS PERCENT AUTO 4.6 % (1.0-3.0); HEMATOCRIT 37.2 % (40.0-54.0); HEMOGLOBIN 12.2 g/dL (14.0-18.0); LYMPHOCYTES PERCENT AUTO 19.8 % (20.5-50.1); MEAN CORPUSCULAR HGB CONC 32.8 g/dL (33.0-35.0); MEAN CORPUSCULAR VOLUME 91.6 fL (80-100); MONOCYTES PERCENT AUTO 9.4 % (2-8); NEUTROPHILS PERCENT AUTO 65.5 % (42.2-75.2); PLATELET COUNT,PLT 412 10^3/uL (150-450); RED BLOOD CELL COUNT 4.06 10^6/uL (4.6-6.2); WHITE BLOOD CELL COUNT,WBC 6.7 10^3/uL (5.0-10.0)
[2024-03-31 07:36] LABS: A/G RATIO 0.56; ALBUMIN 2.7 g/dL (3.4-5.0); ANION GAP 8.7 mEq/L (7-13); BILIRUBIN TOTAL 0.4 mg/dL (0.2-1.0); C-REACTIVE PROTEIN 1.17 ng/dL (<=0.50); CALCIUM 8.6 mg/dL (8.5-10.1); CREATININE 0.75 mg/dL (0.70-1.30); EST CRCL DRUG DOSING (CG) 108.01 mL/min; POTASSIUM,K 3.7 mmol/L (3.5-5.1); PROTEIN TOTAL,TP 7.5 g/dL (6.4-8.2)
[2024-03-31 07:52] LABS: SEDIMENTATION RATE MANUAL 46 mm/hr (0-15)
[2024-03-31] MEDS: Piperacillin/Tazobactam 4.5 GM in Sodium Chloride 0.9% 100 ML IV ONE (14:24)
[2024-04-01] MEDS: Nystatin Topical Powder 60 GM Bottle TOP PRN (21:05)
[2024-04-01] MEDS: Sodium Chloride 0.9% 10 ML Syringe FLUSH PRN (22:14)
[2024-04-02] MEDS ORDERED: levETIRAcetam 500 MG Tab PO SCH (13:00)
[2024-04-03 06:03] LABS: HEMATOCRIT 35.3 % (40.0-54.0); HEMOGLOBIN 11.5 g/dL (14.0-18.0); MEAN CORPUSCULAR HEMOGLOBIN 29.9 pg (27.0-34.0); MEAN CORPUSCULAR HGB CONC 32.6 g/dL (33.0-35.0); MEAN CORPUSCULAR VOLUME 91.9 fL (80-100); RED BLOOD CELL COUNT 3.84 10^6/uL (4.6-6.2); WHITE BLOOD CELL COUNT,WBC 6.6 10^3/uL (5.0-10.0)
[2024-04-03 06:14] LABS: ANION GAP 8.7 mEq/L (7-13); CALCIUM 8.2 mg/dL (8.5-10.1); CREATININE 0.71 mg/dL (0.70-1.30); EST CRCL DRUG DOSING (CG) 114.1 mL/min; POTASSIUM,K 3.7 mmol/L (3.5-5.1)
[2024-04-07 06:06] LABS: HEMATOCRIT 36.9 % (40.0-54.0); MEAN CORPUSCULAR HEMOGLOBIN 30.2 pg (27.0-34.0); MEAN CORPUSCULAR HGB CONC 32.5 g/dL (33.0-35.0); MEAN CORPUSCULAR VOLUME 92.9 fL (80-100); PLATELET COUNT,PLT 336 10^3/uL (150-450); RED BLOOD CELL COUNT 3.97 10^6/uL (4.6-6.2); WHITE BLOOD CELL COUNT,WBC 10.2 10^3/uL (5.0-10.0)
[2024-04-07 06:13] LABS: NEUTROPHILS PERCENT AUTO 66.7 % (42.2-75.2)
[2024-04-07 06:14] LABS: BASOPHILS PERCENT AUTO 0.4 % (0.0-1.0); EOSINOPHILS PERCENT AUTO 4.7 % (1.0-3.0); LYMPHOCYTES PERCENT AUTO 17.3 % (20.5-50.1); MONOCYTES PERCENT AUTO 10.9 % (2-8)
[2024-04-07 06:28] LABS: ALANINE AMINOTRANSFERASE,ALT 22 U/L (16-63); ALBUMIN 2.8 g/dL (3.4-5.0); ALKALINE PHOSPHATASE 60 U/L (46-116); ANION GAP 9.7 mEq/L (7-13); ASPARTATE AMNIOTRANSFERASE,AST 17 U/L (15-37); BILIRUBIN TOTAL 0.3 mg/dL (0.2-1.0); BLOOD UREA NITROGEN,BUN 7 mg/dL (7-18); BUN/CREATININE RATIO 9.6 (No establ ref range); CALCIUM 8.4 mg/dL (8.5-10.1); CARBON DIOXIDE,CO2 29 mmol/L (21-32); CHLORIDE,CL 104 mmol/L (98-107); CREATININE 0.73 mg/dL (0.70-1.30); EST CRCL DRUG DOSING (CG) 110.97 mL/min; GLUCOSE RANDOM 135 mg/dL (70-99); POTASSIUM,K 3.7 mmol/L (3.5-5.1); PROTEIN TOTAL,TP 7.1 g/dL (6.4-8.2); SODIUM,NA 139 mmol/L (136-145)
[2024-04-07 06:36] LABS: A/G RATIO 0.65; C-REACTIVE PROTEIN < 0.50 ng/dL (<=0.50); ESTIMATED GFR 100 mL/min (>=60)
[2024-04-07 07:12] LABS: BAND PERCENT MAN 2 %; EOSINOPHILS PERCENT MAN 5 % (1-3); LYMPHOCYTES % ATYPICAL MANUAL 2 %; LYMPHOCYTES PERCENT MAN 16 % (20-50); MONOCYTES PERCENT MAN 8 % (2-8); SEG NEUTROPHILS PERCENT MAN 67 % (42-75)
[2024-04-07 08:22] LABS: SEDIMENTATION RATE MANUAL 29 mm/hr (0-15)
[2024-04-07] MEDS: Sodium Chloride 0.9% 100 ML IV PRN (14:20)
[2024-04-07] MEDS: Amoxicillin/Clavulanate K 875-125 MG Tab PO SCH (21:22)
[2024-04-07] MEDS: Acetaminophen 500 MG Tab PO PRN (21:23)
[2024-04-08 12:52] VITALS: BP 105/83; PULSE 93
== END 2024-04-08 13:05 | disposition home or self-care (01) | DRG 948 ==
LOC: DL.MS 13:14 → INTOOBSV 13:14 → OBSVTOIN 14:23 → DL.MS 14:23
PROVIDERS: ADMIT Internal Medicine; ATTEND Internal Medicine
DX: R53.81 Other malaise (principal); M86.9 Osteomyelitis, unspecified; I10 Essential (primary) hypertension; E11.69 Type 2 diabetes mellitus with other specified complication; L03.031 Cellulitis of right toe; Z79.01 Long term (current) use of anticoagulants; I63.9 Cerebral infarction, unspecified; Z79.899 Other long term (current) drug therapy; Z79.84 Long term (current) use of oral hypoglycemic drugs; Z79.2 Long term (current) use of antibiotics; Z86.73 Personal history of transient ischemic attack (TIA), and cerebral infarction without residual deficits; Z87.891 Personal history of nicotine dependence; Z89.421 Acquired absence of other right toe(s); E11.9 Type 2 diabetes mellitus without complications; Z79.4 Long term (current) use of insulin
CPT/HCPCS: 36415; 80048; 80053; 82947; 85025; 85027; 85651; 86140; 97110-GO; 97110-GP; 97161-GP; 97165-GO; 97530-GO; 97530-GP; 99305; 99308; 99309; 99316; A9270-GY; J1815-GY; J2543; J3490; J7030

== ENCOUNTER 2024-05-13 16:19 | Emergency (ER) | payer MEDICARE, MEDICAID ==
[2024-05-13 16:45] VITALS: BP 107/60; PULSE 85
[2024-05-13] MEDS: cefTRIAXone 1 GM Vial IVPUSH ONE (17:20)
[2024-05-13 17:27] LABS: BASOPHILS PERCENT AUTO 0.4 % (0.0-1.0); EOSINOPHILS PERCENT AUTO 3.1 % (1.0-3.0); HEMATOCRIT 35.9 % (40.0-54.0); HEMOGLOBIN 11.7 g/dL (14.0-18.0); LYMPHOCYTES PERCENT AUTO 15.6 % (20.5-50.1); MEAN CORPUSCULAR HEMOGLOBIN 28.5 pg (27.0-34.0); MEAN CORPUSCULAR HGB CONC 32.6 g/dL (33.0-35.0); MEAN CORPUSCULAR VOLUME 87.3 fL (80-100); MONOCYTES PERCENT AUTO 9.5 % (2-8); NEUTROPHILS PERCENT AUTO 71.4 % (42.2-75.2); PLATELET COUNT,PLT 563 10^3/uL (150-450); RED BLOOD CELL COUNT 4.11 10^6/uL (4.6-6.2); WHITE BLOOD CELL COUNT,WBC 10.4 10^3/uL (5.0-10.0)
[2024-05-13] MEDS: VANCOmycin 1.5 GM/300 ML 300 ML IV ONE (17:44)
[2024-05-13 17:45] LABS: ALBUMIN 2.3 g/dL (3.4-5.0); ANION GAP 9.4 mEq/L (7-13); BILIRUBIN TOTAL 0.2 mg/dL (0.2-1.0); BUN/CREATININE RATIO 9.6 (No establ ref range); CALCIUM 8.6 mg/dL (8.5-10.1); CREATININE 0.83 mg/dL (0.70-1.30); EST CRCL DRUG DOSING (CG) 94.79 mL/min; POTASSIUM,K 3.4 mmol/L (3.5-5.1); PROTEIN TOTAL,TP 7.9 g/dL (6.4-8.2)
[2024-05-13 17:47] LABS: A/G RATIO 0.41
[2024-05-13 17:50] LABS: LACTIC ACID 1.1 mmol/L (0.4-2.0)
== END 2024-05-13 18:10 ==
LOC: DL.ED 16:19
DX: E11.52 Type 2 diabetes mellitus with diabetic peripheral angiopathy with gangrene (principal); I10 Essential (primary) hypertension; F17.210 Nicotine dependence, cigarettes, uncomplicated; Z79.84 Long term (current) use of oral hypoglycemic drugs; Z79.01 Long term (current) use of anticoagulants; Z79.899 Other long term (current) drug therapy
CPT/HCPCS: 36415; 73660-T6; 80053; 83605; 85025; 87040; 96365; 96375; 99284-25; 99285; J0696; J3372

== ENCOUNTER 2025-01-03 01:48 | Inpatient (IN) | payer MEDICARE, MEDICAID ==
[2025-01-03 02:09] LABS: HEMATOCRIT 39.5 % (40.0-54.0); HEMOGLOBIN 13.1 g/dL (14.0-18.0); MEAN CORPUSCULAR HEMOGLOBIN 30.8 pg (27.0-34.0); MEAN CORPUSCULAR HGB CONC 33.2 g/dL (33.0-35.0); MEAN CORPUSCULAR VOLUME 92.9 fL (80-100); PLATELET COUNT,PLT 427 10^3/uL (150-450); RED BLOOD CELL COUNT 4.25 10^6/uL (4.6-6.2); WHITE BLOOD CELL COUNT,WBC 14.3 10^3/uL (5.0-10.0)
[2025-01-03 02:11] LABS: BASOPHILS PERCENT AUTO 0.3 % (0.0-1.0); EOSINOPHILS PERCENT AUTO 0.1 % (1.0-3.0); LYMPHOCYTES PERCENT AUTO 7.1 % (20.5-50.1); MONOCYTES PERCENT AUTO 7.2 % (2-8); NEUTROPHILS PERCENT AUTO 85.3 % (42.2-75.2)
[2025-01-03 02:27] LABS: ANION GAP 10.9 mEq/L (7-13); BLOOD UREA NITROGEN,BUN 33 mg/dL (7-18); CARBON DIOXIDE,CO2 29 mmol/L (21-32); CHLORIDE,CL 102 mmol/L (98-107); CREATININE 2.97 mg/dL (0.70-1.30); EST CRCL DRUG DOSING (CG) 25.55 mL/min; GLUCOSE RANDOM 292 mg/dL (70-99); POTASSIUM,K 3.9 mmol/L (3.5-5.1); SODIUM,NA 138 mmol/L (136-145)
[2025-01-03 02:28] LABS: ALANINE AMINOTRANSFERASE,ALT 38 U/L (16-63); ALBUMIN 2.2 g/dL (3.4-5.0); ALKALINE PHOSPHATASE 108 U/L (46-116); ASPARTATE AMNIOTRANSFERASE,AST 25 U/L (15-37); BILIRUBIN TOTAL 0.8 mg/dL (0.2-1.0); BUN/CREATININE RATIO 11.1 (No establ ref range); C-REACTIVE PROTEIN 16.99 ng/dL (<=0.50); CALCIUM 8.8 mg/dL (8.5-10.1); LACTIC ACID 1.5 mmol/L (0.4-2.0); PROTEIN TOTAL,TP 7.4 g/dL (6.4-8.2)
[2025-01-03 02:31] LABS: A/G RATIO 0.42; ESTIMATED GFR 22 mL/min (>=60); ETHANOL BLOOD MEDICAL < 3 mg/dL (0)
[2025-01-03 02:36] LABS: BAND PERCENT MAN 3 %; LYMPHOCYTES PERCENT MAN 4 % (20-50); MONOCYTES PERCENT MAN 6 % (2-8); SEG NEUTROPHILS PERCENT MAN 87 % (42-75)
[2025-01-03] MEDS: Lactated Ringers 1,000 ML IV ONE (02:56)
[2025-01-03 03:32] LABS: APPEARANCE,URINE TURBID (CLEAR); BILIRUBIN,URINE MODERATE (NEGATIVE); COLOR,URINE YELLOW (YELLOW); GLUCOSE,URINE NEGATIVE (NEGATIVE); KETONES,URINE TRACE (NEGATIVE); LEUKOCYTE ESTERASE,URINE LARGE (NEGATIVE); NITRITE,URINE NEGATIVE (NEGATIVE); OCCULT BLOOD,URINE LARGE (NEGATIVE); PH,URINE 5.5 (5.0-9.0); PROTEIN,URINE >=300 (NEGATIVE)
[2025-01-03 03:33] LABS: AMPHETAMINES,URINE NEGATIVE (NEGATIVE); BARBITURATES,URINE NEGATIVE (NEGATIVE); BENZODIAZEPINE,URINE NEGATIVE (NEGATIVE); MDMA (ECSTASY), URINE NEGATIVE (NEGATIVE); METHADONE,URINE NEGATIVE (NEGATIVE); METHAMPHETAMINES,URINE NEGATIVE (NEGATIVE); OPIATES,URINE NEGATIVE (NEGATIVE); OXYCODONE,URINE NEGATIVE (NEGATIVE); PHENCYCLIDINE,URINE NEGATIVE (NEGATIVE); TCA,URINE NEGATIVE (NEGATIVE)
[2025-01-03] MEDS: cefTRIAXone 1 GM Vial IVPUSH ONE (03:35)
[2025-01-03 03:41] LABS: BACTERIA,URINE MANY /HPF (0-FEW/HPF); EPITHELIAL CELLS,URINE FEW /HPF (NOT SEEN); WBC,URINE PACKED /HPF (0-5/HPF)
[2025-01-03] MEDS: Sodium Chloride 0.9% 1,000 ML IV ONE (04:00)
[2025-01-03] MEDS ORDERED: Acetaminophen 325 MG Tab PO PRN (07:19)
[2025-01-03] MEDS ORDERED: 50% Dextrose in Water 50 ML Syringe IVPUSH PRN ×2 (07:30→07:33)
[2025-01-03] MEDS ORDERED: Glucagon,Human Recombinant 1 MG Vial IM PRN ×3 (07:30→07:33)
[2025-01-03] MEDS: Sodium Chloride 0.9% 1,000 ML IV SCH (07:30)
[2025-01-03 07:53] LABS: HEMOGLOBIN A1C 6.9 % (<5.7)
[2025-01-03 08:20] LABS: FOLIC ACID 17.1 ng/mL (8.6-58.9); T4 FREE 1.74 ng/dL (0.76-1.46); TSH ULTRASENSITIVE 2.79 uIU/mL (0.36-3.74)
[2025-01-03] MEDS: Insulin Lispro 100 Units/ML 3 ML Vial SUBCUT SCH ×2 (08:57)
[2025-01-03] MEDS: Nystatin Topical Powder 60 GM Bottle TOP SCH (09:00)
[2025-01-03] MEDS: Sertraline 50 MG Tab PO SCH (09:00)
[2025-01-03] MEDS: MVI, Adult with Vitamin K 10 ML, Folic Acid 1 MG, Thiamine 100 MG in Lactated Ringers 1... IV ONE (09:00)
[2025-01-03] MEDS: Nicotine 7 MG/24 Hr Patch TRDERM SCH (09:01)
[2025-01-03] MEDS: Apixaban 5 MG Tab PO SCH (09:01)
[2025-01-03] MEDS: Ciprofloxacin 0.3% Ophth Soln 5 ML Bottle EYEBOTH SCH (09:01)
[2025-01-03] MEDS: Insulin Glarg,Human.Rec.Analog 100 Unit/ML 10 ML Vial SUBCUT SCH (20:51)
[2025-01-03] MEDS: Check NICOTINE Patch TRDERM SCH (20:52)
[2025-01-04 06:39] LABS: BASOPHILS PERCENT AUTO 0.1 % (0.0-1.0); EOSINOPHILS PERCENT AUTO 1.1 % (1.0-3.0); HEMATOCRIT 33.9 % (40.0-54.0); HEMOGLOBIN 11.6 g/dL (14.0-18.0); MEAN CORPUSCULAR HEMOGLOBIN 32.3 pg (27.0-34.0); MEAN CORPUSCULAR HGB CONC 34.2 g/dL (33.0-35.0); MEAN CORPUSCULAR VOLUME 94.4 fL (80-100); MONOCYTES PERCENT AUTO 6.3 % (2-8); NEUTROPHILS PERCENT AUTO 84.5 % (42.2-75.2); PLATELET COUNT,PLT 415 10^3/uL (150-450); RED BLOOD CELL COUNT 3.59 10^6/uL (4.6-6.2); WHITE BLOOD CELL COUNT,WBC 14.2 10^3/uL (5.0-10.0)
[2025-01-04 07:03] LABS: ALBUMIN 1.7 g/dL (3.4-5.0); ANION GAP 11.8 mEq/L (7-13); BILIRUBIN DIRECT 0.2 mg/dL (0.0-0.2); BILIRUBIN INDIRECT 0.2; BILIRUBIN TOTAL 0.4 mg/dL (0.2-1.0); CALCIUM 8.3 mg/dL (8.5-10.1); CREATININE 0.97 mg/dL (0.70-1.30); EST CRCL DRUG DOSING (CG) 81.5 mL/min; MAGNESIUM 1.5 mg/dL (1.8-2.4); PHOSPHORUS 2.7 mg/dL (2.6-4.7); POTASSIUM,K 3.8 mmol/L (3.5-5.1); PROTEIN TOTAL,TP 6.1 g/dL (6.4-8.2)
[2025-01-04 07:08] LABS: A/G RATIO 0.39
[2025-01-04] MEDS: cefTRIAXone 2 GM Vial IVPUSH SCH (08:43)
[2025-01-04] MEDS: VANCOmycin 1 GM in Sodium Chloride 0.9% 250 ML IV SCH (13:34)
[2025-01-05 07:12] LABS: CREATININE 0.79 mg/dL (0.70-1.30); EST CRCL DRUG DOSING (CG) 99.43 mL/min; VANCOMYCIN RANDOM 13.5 ug/mL (No Normal Range)
[2025-01-05] MEDS: Levofloxacin 500 MG Tab PO SCH (13:07)
[2025-01-05 13:30] LABS: T4 FREE 1.58 ng/dL (0.76-1.46); TSH ULTRASENSITIVE 2.89 uIU/mL (0.36-3.74)
[2025-01-05] MEDS: Docusate Sodium 100 MG Cap PO PRN (20:15)
[2025-01-05] MEDS: Insulin Glarg,Human.Rec.Analog 100 Unit/ML 10 ML Vial SUBCUT SCH (20:16)
[2025-01-06 06:55] LABS: BASOPHILS PERCENT AUTO 0.2 % (0.0-1.0); EOSINOPHILS PERCENT AUTO 2.2 % (1.0-3.0); HEMATOCRIT 35.3 % (40.0-54.0); HEMOGLOBIN 11.6 g/dL (14.0-18.0); LYMPHOCYTES PERCENT AUTO 9.6 % (20.5-50.1); MEAN CORPUSCULAR HEMOGLOBIN 30.3 pg (27.0-34.0); MEAN CORPUSCULAR HGB CONC 32.9 g/dL (33.0-35.0); MEAN CORPUSCULAR VOLUME 92.2 fL (80-100); MONOCYTES PERCENT AUTO 7.9 % (2-8); NEUTROPHILS PERCENT AUTO 80.1 % (42.2-75.2); PLATELET COUNT,PLT 483 10^3/uL (150-450); RED BLOOD CELL COUNT 3.83 10^6/uL (4.6-6.2); WHITE BLOOD CELL COUNT,WBC 12.3 10^3/uL (5.0-10.0)
[2025-01-06 07:14] LABS: ANION GAP 9.2 mEq/L (7-13); CALCIUM 8.1 mg/dL (8.5-10.1); CREATININE 0.72 mg/dL (0.70-1.30); EST CRCL DRUG DOSING (CG) 108.33 mL/min; MAGNESIUM 1.2 mg/dL (1.8-2.4); POTASSIUM,K 3.2 mmol/L (3.5-5.1)
[2025-01-06] MEDS: Magnesium Sulfate 2 GM/50 mL 2 GM in Premix Bag 1 BAG IV ONE (10:55)
[2025-01-06] MEDS: Potassium Chloride 20 MEQ in Premix Bag 1 BAG IV ONE (11:01)
[2025-01-06 14:46] LABS: VITAMIN B1, WHOLE BLOOD 120 nmol/L (70-180)
[2025-01-06] MEDS: Potassium Chloride 10 MEQ Tab.ER PO SCH (17:37)
[2025-01-06] MEDS: Magnesium Oxide 400 MG Tab PO SCH (17:37)
[2025-01-07 07:07] LABS: BASOPHILS PERCENT AUTO 0.3 % (0.0-1.0); EOSINOPHILS PERCENT AUTO 2.7 % (1.0-3.0); HEMATOCRIT 34.6 % (40.0-54.0); HEMOGLOBIN 11.8 g/dL (14.0-18.0); LYMPHOCYTES PERCENT AUTO 12.7 % (20.5-50.1); MEAN CORPUSCULAR HEMOGLOBIN 31.6 pg (27.0-34.0); MEAN CORPUSCULAR HGB CONC 34.1 g/dL (33.0-35.0); MEAN CORPUSCULAR VOLUME 92.8 fL (80-100); MONOCYTES PERCENT AUTO 6.8 % (2-8); NEUTROPHILS PERCENT AUTO 77.5 % (42.2-75.2); PLATELET COUNT,PLT 494 10^3/uL (150-450); RED BLOOD CELL COUNT 3.73 10^6/uL (4.6-6.2); WHITE BLOOD CELL COUNT,WBC 10.1 10^3/uL (5.0-10.0)
[2025-01-07 08:14] LABS: ANION GAP 9.6 mEq/L (7-13); CALCIUM 8.2 mg/dL (8.5-10.1); CREATININE 0.69 mg/dL (0.70-1.30); EST CRCL DRUG DOSING (CG) 113.24 mL/min; POTASSIUM,K 3.6 mmol/L (3.5-5.1)
[2025-01-07] MEDS: Magnesium Sulfate 2 GM/50 mL 2 GM in Premix Bag 1 BAG IV ONE (12:10)
[2025-01-07] MEDS: Sodium Chloride 0.9% 10 ML Syringe FLUSH PRN (12:13)
[2025-01-08 06:45] LABS: BASOPHILS PERCENT AUTO 0.4 % (0.0-1.0); EOSINOPHILS PERCENT AUTO 3.3 % (1.0-3.0); HEMATOCRIT 35.7 % (40.0-54.0); HEMOGLOBIN 11.5 g/dL (14.0-18.0); MEAN CORPUSCULAR HEMOGLOBIN 30.4 pg (27.0-34.0); MEAN CORPUSCULAR HGB CONC 32.2 g/dL (33.0-35.0); MEAN CORPUSCULAR VOLUME 94.4 fL (80-100); MONOCYTES PERCENT AUTO 8.2 % (2-8); NEUTROPHILS PERCENT AUTO 73.1 % (42.2-75.2); PLATELET COUNT,PLT 501 10^3/uL (150-450); RED BLOOD CELL COUNT 3.78 10^6/uL (4.6-6.2)
[2025-01-08 07:28] LABS: ANION GAP 14.3 mEq/L (7-13); POTASSIUM,K 4.3 mmol/L (3.5-4.5)
[2025-01-08 07:29] LABS: CALCIUM 1.18 mmol/l (1.15-1.33); CREATININE 0.8 mg/dL (0.51-1.19); EST CRCL DRUG DOSING (CG) 97.4 mL/min
[2025-01-08] MEDS: Ciprofloxacin 0.3% Ophth Soln 5 ML Bottle EYEBOTH SCH (12:37)
[2025-01-09 06:22] LABS: BASOPHILS PERCENT AUTO 0.4 % (0.0-1.0); EOSINOPHILS PERCENT AUTO 2.7 % (1.0-3.0); HEMATOCRIT 36.9 % (40.0-54.0); HEMOGLOBIN 12.2 g/dL (14.0-18.0); MEAN CORPUSCULAR HEMOGLOBIN 31.4 pg (27.0-34.0); MEAN CORPUSCULAR HGB CONC 33.1 g/dL (33.0-35.0); MEAN CORPUSCULAR VOLUME 94.9 fL (80-100); NEUTROPHILS PERCENT AUTO 74.9 % (42.2-75.2); PLATELET COUNT,PLT 576 10^3/uL (150-450); RED BLOOD CELL COUNT 3.89 10^6/uL (4.6-6.2); WHITE BLOOD CELL COUNT,WBC 11.4 10^3/uL (5.0-10.0)
[2025-01-09 06:41] LABS: CALCIUM 8.8 mg/dL (8.5-10.1); CREATININE 0.82 mg/dL (0.70-1.30); EST CRCL DRUG DOSING (CG) 97.03 mL/min
[2025-01-14 14:14] VITALS: BP 120/65; PULSE 87
== END 2025-01-14 14:16 | disposition swing bed (61) | DRG 871 ==
LOC: DL.ED 01:48 → DL.MS 04:45 → DL.ED 04:54
PROVIDERS: ADMIT Internal Medicine; ATTEND Internal Medicine
PROC: 3E03329 Introduction of Other Anti-infective into Peripheral Vein, Percutaneous Approach (ICD-10-PCS; principal; 2025-01-03)
PROC: 0T9B70Z Drainage of Bladder with Drainage Device, Via Natural or Artificial Opening (ICD-10-PCS; 2025-01-03)
DX: A41.51 Sepsis due to Escherichia coli [E. coli] (principal); E43 Unspecified severe protein-calorie malnutrition; N17.9 Acute kidney failure, unspecified; E11.9 Type 2 diabetes mellitus without complications; N39.0 Urinary tract infection, site not specified; Z79.4 Long term (current) use of insulin; I69.354 Hemiplegia and hemiparesis following cerebral infarction affecting left non-dominant side; R65.20 Severe sepsis without septic shock; I10 Essential (primary) hypertension; E86.0 Dehydration; E83.52 Hypercalcemia; L89.156 Pressure-induced deep tissue damage of sacral region; E11.65 Type 2 diabetes mellitus with hyperglycemia; F17.210 Nicotine dependence, cigarettes, uncomplicated; R62.7 Adult failure to thrive; E88.09 Other disorders of plasma-protein metabolism, not elsewhere classified; H57.9 Unspecified disorder of eye and adnexa; E83.42 Hypomagnesemia; E87.6 Hypokalemia; Z79.01 Long term (current) use of anticoagulants; Z79.84 Long term (current) use of oral hypoglycemic drugs; Z79.899 Other long term (current) drug therapy; Z89.421 Acquired absence of other right toe(s); Z68.23 Body mass index [BMI] 23.0-23.9, adult
CPT/HCPCS: 36415; 70450; 71045; 72125; 80053; 80305; 80307; 81001; 82550; 82607; 82746; 83036; 83605; 83735; 83880; 84145; 84439; 84443; 84484; 85025; 86140; 87086; 87088 ×2; 87186 ×2; 93005; 93010; 96361; 96374; 99284; 99285; J0696; J7030; J7120; 80048; 80076; 80202; 82565; 82947; 84100; 84425; 97110-GO; 97110-GP; 97161-GP; 97165-GO; 97530-GO; 97530-GP; 99223; 99232; 99233; 99239; A9270-GY; J1815-GY; J3411; J3475; J3480; J3490; J7050; U0002

== ENCOUNTER 2025-01-14 08:41 | Inpatient (IN) | payer MEDICARE, MEDICAID ==
[2025-01-14] MEDS ORDERED: Glucagon,Human Recombinant 1 MG Vial IM PRN ×2 (14:05)
[2025-01-14] MEDS ORDERED: Docusate Sodium 100 MG Cap PO PRN (14:05)
[2025-01-14] MEDS ORDERED: 50% Dextrose in Water 50 ML Syringe IVPUSH PRN (14:05)
[2025-01-14] MEDS ORDERED: Acetaminophen 325 MG Tab PO PRN (14:05)
[2025-01-14] MEDS ORDERED: Sodium Chloride 0.9% 10 ML Syringe FLUSH PRN (14:05)
[2025-01-14] MEDS: Nystatin Topical Powder 60 GM Bottle TOP SCH (15:11)
[2025-01-14] MEDS: Insulin Lispro 100 Units/ML 3 ML Vial SUBCUT SCH ×2 (16:48→17:14)
[2025-01-14] MEDS: Potassium Chloride 10 MEQ Tab.ER PO SCH (17:13)
[2025-01-14] MEDS: Magnesium Oxide 400 MG Tab PO SCH (17:14)
[2025-01-14] MEDS: Insulin Glarg,Human.Rec.Analog 100 Unit/ML 10 ML Vial SUBCUT SCH (20:52)
[2025-01-14] MEDS: Apixaban 5 MG Tab PO SCH (21:02)
[2025-01-14] MEDS: Sodium Chloride 0.9% 10 ML Syringe FLUSH SCH (21:02)
[2025-01-15 06:43] LABS: BASOPHILS PERCENT AUTO 0.9 % (0.0-1.0); EOSINOPHILS PERCENT AUTO 2.2 % (1.0-3.0); HEMATOCRIT 34.8 % (40.0-54.0); HEMOGLOBIN 11.6 g/dL (14.0-18.0); LYMPHOCYTES PERCENT AUTO 23.8 % (20.5-50.1); MEAN CORPUSCULAR HEMOGLOBIN 31.9 pg (27.0-34.0); MEAN CORPUSCULAR HGB CONC 33.3 g/dL (33.0-35.0); MEAN CORPUSCULAR VOLUME 95.6 fL (80-100); NEUTROPHILS PERCENT AUTO 65.1 % (42.2-75.2); PLATELET COUNT,PLT 512 10^3/uL (150-450); RED BLOOD CELL COUNT 3.64 10^6/uL (4.6-6.2); WHITE BLOOD CELL COUNT,WBC 7.8 10^3/uL (5.0-10.0)
[2025-01-15 06:50] LABS: ANION GAP 10.7 mEq/L (7-13); CALCIUM 8.8 mg/dL (8.5-10.1); CREATININE 0.84 mg/dL (0.70-1.30); EST CRCL DRUG DOSING (CG) 94.06 mL/min; POTASSIUM,K 4.7 mmol/L (3.5-5.1)
[2025-01-15] MEDS: Sertraline 50 MG Tab PO SCH (09:01)
[2025-01-15] MEDS: Levofloxacin 500 MG Tab PO SCH (12:25)
[2025-01-24 07:18] LABS: ALBUMIN 2.8 g/dL (3.4-5.0); ANION GAP 9.9 mEq/L (7-13); BILIRUBIN TOTAL 0.4 mg/dL (0.2-1.0); BUN/CREATININE RATIO 22.2 (No establ ref range); CALCIUM 8.7 mg/dL (8.5-10.1); CREATININE 0.72 mg/dL (0.70-1.30); EST CRCL DRUG DOSING (CG) 110.5 mL/min; MAGNESIUM 1.7 mg/dL (1.8-2.4); POTASSIUM,K 4.9 mmol/L (3.5-5.1); PROTEIN TOTAL,TP 7.5 g/dL (6.4-8.2)
[2025-01-24 07:19] LABS: A/G RATIO 0.6
[2025-01-24 07:35] VITALS: BP 131/63; PULSE 70
== END 2025-01-24 09:21 | DRG 947 ==
LOC: DL.MS 14:08 → UNDOADMIN 14:14
PROVIDERS: ADMIT Internal Medicine; ATTEND Internal Medicine
DX: R53.81 Other malaise (principal); E43 Unspecified severe protein-calorie malnutrition; I69.354 Hemiplegia and hemiparesis following cerebral infarction affecting left non-dominant side; R62.7 Adult failure to thrive; I10 Essential (primary) hypertension; F17.200 Nicotine dependence, unspecified, uncomplicated; E83.42 Hypomagnesemia; E87.6 Hypokalemia; E88.09 Other disorders of plasma-protein metabolism, not elsewhere classified; F19.10 Other psychoactive substance abuse, uncomplicated; Z74.1 Need for assistance with personal care; R94.6 Abnormal results of thyroid function studies; E11.65 Type 2 diabetes mellitus with hyperglycemia; E78.5 Hyperlipidemia, unspecified; L89.159 Pressure ulcer of sacral region, unspecified stage; Z91.148 Patient's other noncompliance with medication regimen for other reason; Z68.23 Body mass index [BMI] 23.0-23.9, adult; Z89.421 Acquired absence of other right toe(s); Z79.899 Other long term (current) drug therapy; Z79.01 Long term (current) use of anticoagulants; Z79.82 Long term (current) use of aspirin; Z79.4 Long term (current) use of insulin; I69.322 Dysarthria following cerebral infarction
CPT/HCPCS: 36415; 80048; 80053; 82947; 83735; 85025; 97110-GO; 97110-GP; 97161-GP; 97165-GO; 97530-GO; 99306; 99310; 99315; A9270-GY; J1815-GY; U0002

== ENCOUNTER 2025-04-27 16:39 | Inpatient (IN) | payer MEDICARE, MEDICAID ==
[2025-04-27 17:28] LABS: BASOPHILS PERCENT AUTO 0.5 % (0.0-1.0); EOSINOPHILS PERCENT AUTO 1.4 % (1.0-3.0); LYMPHOCYTES PERCENT AUTO 24.3 % (20.5-50.1); MONOCYTES PERCENT AUTO 8.1 % (2-8); NEUTROPHILS PERCENT AUTO 65.7 % (42.2-75.2); PLATELET COUNT,PLT 305 10^3/uL (150-450); RED BLOOD CELL COUNT 4.06 10^6/uL (4.6-6.2); WHITE BLOOD CELL COUNT,WBC 7.7 10^3/uL (5.0-10.0)
[2025-04-27 17:49] LABS: BLOOD UREA NITROGEN,BUN 12 mg/dL (7-18); CARBON DIOXIDE,CO2 29 mmol/L (21-32); CHLORIDE,CL 104 mmol/L (98-107); CREATININE 1.10 mg/dL (0.70-1.30); GLUCOSE RANDOM 150 mg/dL (70-99); POTASSIUM,K 3.8 mmol/L (3.5-5.1); PROTEIN TOTAL,TP 7.1 g/dL (6.4-8.2); SODIUM,NA 141 mmol/L (136-145)
[2025-04-27 17:50] LABS: A/G RATIO 0.78; ALANINE AMINOTRANSFERASE,ALT 21 U/L (16-63); ASPARTATE AMNIOTRANSFERASE,AST 17 U/L (15-37); BILIRUBIN TOTAL 0.4 mg/dL (0.2-1.0); ESTIMATED GFR 73 mL/min (>=60)
[2025-04-27] MEDS ORDERED: Ondansetron 4 MG/2 ML SDV IVPUSH PRN (19:11)
[2025-04-27] MEDS ORDERED: Sennosides/Docusate Sodium 50-8.6 MG Tab PO PRN (19:11)
[2025-04-27] MEDS ORDERED: 50% Dextrose in Water 50 ML Syringe IVPUSH PRN (19:19)
[2025-04-27 19:46] LABS: IRON,FE 56.0 ug/dL (65-175); PERCENT FE SATURATION 32.7 % (20.0-50.0)
[2025-04-27 19:55] LABS: INR 1.0 (0.9-1.2); PTT,PARTIAL THROMBOPLSTIN TIME 27.2 SEC (22.0-34.0)
[2025-04-27 19:59] LABS: FOLIC ACID 13.5 ng/mL (8.6-58.9)
[2025-04-28 06:44] LABS: BASOPHILS PERCENT AUTO 0.5 % (0.0-1.0); EOSINOPHILS PERCENT AUTO 3.6 % (1.0-3.0); LYMPHOCYTES PERCENT AUTO 23.4 % (20.5-50.1); MONOCYTES PERCENT AUTO 9.5 % (2-8); NEUTROPHILS PERCENT AUTO 63.0 % (42.2-75.2); PLATELET COUNT,PLT 294 10^3/uL (150-450); RED BLOOD CELL COUNT 4.07 10^6/uL (4.6-6.2); WHITE BLOOD CELL COUNT,WBC 7.9 10^3/uL (5.0-10.0)
[2025-04-28 07:20] LABS: ALANINE AMINOTRANSFERASE,ALT 23.0 U/L (16-63); ASPARTATE AMNIOTRANSFERASE,AST 18.0 U/L (15-37); BILIRUBIN TOTAL 0.4 mg/dL (0.2-1.0); BLOOD UREA NITROGEN,BUN 14.0 mg/dL (7-18); CARBON DIOXIDE,CO2 30.0 mmol/L (21-32); CHLORIDE,CL 104.0 mmol/L (98-107); CREATININE 0.81 mg/dL (0.70-1.30); EST CRCL DRUG DOSING (CG) 93.69 mL/min; GLUCOSE RANDOM 93.0 mg/dL (70-99); POTASSIUM,K 4.0 mmol/L (3.5-5.1); PROTEIN TOTAL,TP 7.0 g/dL (6.4-8.2); SODIUM,NA 140.0 mmol/L (136-145)
[2025-04-28 07:22] LABS: A/G RATIO 0.79; ESTIMATED GFR 96.0 mL/min (>=60)
[2025-04-28] MEDS: Cholecalciferol (Vitamin D3) 25 MCG Tab PO SCH (08:37)
[2025-04-29 06:21] LABS: BASOPHILS PERCENT AUTO 0.5 % (0.0-1.0); EOSINOPHILS PERCENT AUTO 3.6 % (1.0-3.0); LYMPHOCYTES PERCENT AUTO 23.5 % (20.5-50.1); MONOCYTES PERCENT AUTO 9.2 % (2-8); NEUTROPHILS PERCENT AUTO 63.2 % (42.2-75.2); PLATELET COUNT,PLT 303 10^3/uL (150-450); RED BLOOD CELL COUNT 4.19 10^6/uL (4.6-6.2); WHITE BLOOD CELL COUNT,WBC 9.4 10^3/uL (5.0-10.0)
[2025-04-29 07:08] LABS: ALANINE AMINOTRANSFERASE,ALT 23.0 U/L (16-63); ASPARTATE AMNIOTRANSFERASE,AST 20.0 U/L (15-37); BILIRUBIN TOTAL 0.3 mg/dL (0.2-1.0); BLOOD UREA NITROGEN,BUN 20.0 mg/dL (7-18); CARBON DIOXIDE,CO2 28.0 mmol/L (21-32); CHLORIDE,CL 105.0 mmol/L (98-107); CREATININE 0.76 mg/dL (0.70-1.30); EST CRCL DRUG DOSING (CG) 102.06 mL/min; GLUCOSE RANDOM 116.0 mg/dL (70-99); POTASSIUM,K 4.6 mmol/L (3.5-5.1); PROTEIN TOTAL,TP 7.3 g/dL (6.4-8.2); SODIUM,NA 139.0 mmol/L (136-145)
[2025-04-29 07:13] LABS: A/G RATIO 0.78; ESTIMATED GFR 98.0 mL/min (>=60)
[2025-04-30 07:05] LABS: BASOPHILS PERCENT AUTO 0.6 % (0.0-1.0); EOSINOPHILS PERCENT AUTO 5.0 % (1.0-3.0); LYMPHOCYTES PERCENT AUTO 27.7 % (20.5-50.1); MONOCYTES PERCENT AUTO 10.2 % (2-8); NEUTROPHILS PERCENT AUTO 56.5 % (42.2-75.2); PLATELET COUNT,PLT 263 10^3/uL (150-450); RED BLOOD CELL COUNT 4.21 10^6/uL (4.6-6.2); WHITE BLOOD CELL COUNT,WBC 7.3 10^3/uL (5.0-10.0)
[2025-04-30 07:27] LABS: ALANINE AMINOTRANSFERASE,ALT 25.0 U/L (16-63); ASPARTATE AMNIOTRANSFERASE,AST 22.0 U/L (15-37); BILIRUBIN TOTAL 0.3 mg/dL (0.2-1.0); BLOOD UREA NITROGEN,BUN 22.0 mg/dL (7-18); CARBON DIOXIDE,CO2 27.0 mmol/L (21-32); CHLORIDE,CL 103.0 mmol/L (98-107); CREATININE 0.69 mg/dL (0.70-1.30); EST CRCL DRUG DOSING (CG) 107.94 mL/min; GLUCOSE RANDOM 119.0 mg/dL (70-99); POTASSIUM,K 4.5 mmol/L (3.5-5.1); PROTEIN TOTAL,TP 7.3 g/dL (6.4-8.2); SODIUM,NA 137.0 mmol/L (136-145)
[2025-04-30 07:28] LABS: A/G RATIO 0.78; ESTIMATED GFR 101.0 mL/min (>=60)
[2025-04-30 08:03] LABS: APPEARANCE,URINE SLIGHTLY CLOUDY (CLEAR); GLUCOSE,URINE NEGATIVE (NEGATIVE); OCCULT BLOOD,URINE TRACE-INTACT (NEGATIVE)
[2025-04-30 08:13] LABS: EPITHELIAL CELLS,URINE FEW /HPF (NOT SEEN)
[2025-05-01 07:03] LABS: BASOPHILS PERCENT AUTO 0.6 % (0.0-1.0); EOSINOPHILS PERCENT AUTO 4.7 % (1.0-3.0); LYMPHOCYTES PERCENT AUTO 24.0 % (20.5-50.1); MONOCYTES PERCENT AUTO 10.4 % (2-8); NEUTROPHILS PERCENT AUTO 60.3 % (42.2-75.2); PLATELET COUNT,PLT 280 10^3/uL (150-450); RED BLOOD CELL COUNT 4.08 10^6/uL (4.6-6.2); WHITE BLOOD CELL COUNT,WBC 6.8 10^3/uL (5.0-10.0)
[2025-05-01 07:16] LABS: ALANINE AMINOTRANSFERASE,ALT 28.0 U/L (16-63); ASPARTATE AMNIOTRANSFERASE,AST 22.0 U/L (15-37); BILIRUBIN TOTAL 0.2 mg/dL (0.2-1.0); BLOOD UREA NITROGEN,BUN 24.0 mg/dL (7-18); CARBON DIOXIDE,CO2 29.0 mmol/L (21-32); CHLORIDE,CL 103.0 mmol/L (98-107); CREATININE 0.73 mg/dL (0.70-1.30); EST CRCL DRUG DOSING (CG) 102.71 mL/min; GLUCOSE RANDOM 127.0 mg/dL (70-99); POTASSIUM,K 4.5 mmol/L (3.5-5.1); PROTEIN TOTAL,TP 7.2 g/dL (6.4-8.2); SODIUM,NA 137.0 mmol/L (136-145)
[2025-05-01 07:17] LABS: A/G RATIO 0.8; ESTIMATED GFR 99.0 mL/min (>=60)
[2025-05-01] MEDS: Sodium Chloride 0.9% 10 ML Syringe FLUSH PRN (20:41)
[2025-05-02 06:55] LABS: BASOPHILS PERCENT AUTO 0.7 % (0.0-1.0); EOSINOPHILS PERCENT AUTO 5.7 % (1.0-3.0); LYMPHOCYTES PERCENT AUTO 27.4 % (20.5-50.1); MONOCYTES PERCENT AUTO 10.3 % (2-8); NEUTROPHILS PERCENT AUTO 55.9 % (42.2-75.2); PLATELET COUNT,PLT 286 10^3/uL (150-450); RED BLOOD CELL COUNT 4.15 10^6/uL (4.6-6.2); WHITE BLOOD CELL COUNT,WBC 6.8 10^3/uL (5.0-10.0)
[2025-05-02 07:14] LABS: ALANINE AMINOTRANSFERASE,ALT 28.0 U/L (16-63); ASPARTATE AMNIOTRANSFERASE,AST 21.0 U/L (15-37); BILIRUBIN TOTAL 0.3 mg/dL (0.2-1.0); BLOOD UREA NITROGEN,BUN 22.0 mg/dL (7-18); CARBON DIOXIDE,CO2 28.0 mmol/L (21-32); CHLORIDE,CL 102.0 mmol/L (98-107); CREATININE 0.64 mg/dL (0.70-1.30); EST CRCL DRUG DOSING (CG) 119.49 mL/min; GLUCOSE RANDOM 111.0 mg/dL (70-99); POTASSIUM,K 4.6 mmol/L (3.5-5.1); PROTEIN TOTAL,TP 7.2 g/dL (6.4-8.2); SODIUM,NA 137.0 mmol/L (136-145)
[2025-05-02 07:21] LABS: A/G RATIO 0.76; ESTIMATED GFR 103.0 mL/min (>=60)
[2025-05-03 07:10] LABS: BASOPHILS PERCENT AUTO 0.4 % (0.0-1.0); EOSINOPHILS PERCENT AUTO 4.6 % (1.0-3.0); LYMPHOCYTES PERCENT AUTO 18.1 % (20.5-50.1); MONOCYTES PERCENT AUTO 9.5 % (2-8); NEUTROPHILS PERCENT AUTO 67.4 % (42.2-75.2); PLATELET COUNT,PLT 296 10^3/uL (150-450); RED BLOOD CELL COUNT 3.94 10^6/uL (4.6-6.2); WHITE BLOOD CELL COUNT,WBC 9.7 10^3/uL (5.0-10.0)
[2025-05-03 07:30] LABS: ALANINE AMINOTRANSFERASE,ALT 30.0 U/L (16-63); ASPARTATE AMNIOTRANSFERASE,AST 22.0 U/L (15-37); BILIRUBIN TOTAL 0.2 mg/dL (0.2-1.0); BLOOD UREA NITROGEN,BUN 31.0 mg/dL (7-18); CARBON DIOXIDE,CO2 29.0 mmol/L (21-32); CHLORIDE,CL 102.0 mmol/L (98-107); CREATININE 0.77 mg/dL (0.70-1.30); EST CRCL DRUG DOSING (CG) 100.62 mL/min; GLUCOSE RANDOM 144.0 mg/dL (70-99); POTASSIUM,K 4.6 mmol/L (3.5-5.1); PROTEIN TOTAL,TP 7.0 g/dL (6.4-8.2); SODIUM,NA 136.0 mmol/L (136-145)
[2025-05-03 07:31] LABS: A/G RATIO 0.75; ESTIMATED GFR 98.0 mL/min (>=60)
[2025-05-04 06:42] LABS: BASOPHILS PERCENT AUTO 0.9 % (0.0-1.0); EOSINOPHILS PERCENT AUTO 6.4 % (1.0-3.0); LYMPHOCYTES PERCENT AUTO 29.0 % (20.5-50.1); MONOCYTES PERCENT AUTO 11.5 % (2-8); NEUTROPHILS PERCENT AUTO 52.2 % (42.2-75.2); PLATELET COUNT,PLT 281 10^3/uL (150-450); RED BLOOD CELL COUNT 4.04 10^6/uL (4.6-6.2); WHITE BLOOD CELL COUNT,WBC 6.8 10^3/uL (5.0-10.0)
[2025-05-04 07:02] LABS: ALANINE AMINOTRANSFERASE,ALT 30.0 U/L (16-63); ASPARTATE AMNIOTRANSFERASE,AST 25.0 U/L (15-37); BILIRUBIN TOTAL 0.3 mg/dL (0.2-1.0); BLOOD UREA NITROGEN,BUN 28.0 mg/dL (7-18); CARBON DIOXIDE,CO2 30.0 mmol/L (21-32); CHLORIDE,CL 102.0 mmol/L (98-107); CREATININE 0.65 mg/dL (0.70-1.30); EST CRCL DRUG DOSING (CG) 119.26 mL/min; GLUCOSE RANDOM 109.0 mg/dL (70-99); POTASSIUM,K 4.6 mmol/L (3.5-5.1); PROTEIN TOTAL,TP 7.1 g/dL (6.4-8.2); SODIUM,NA 137.0 mmol/L (136-145)
[2025-05-04 07:32] LABS: A/G RATIO 0.82; ESTIMATED GFR 103.0 mL/min (>=60)
[2025-05-05 09:14] LABS: BASOPHILS PERCENT AUTO 0.3 % (0.0-1.0); EOSINOPHILS PERCENT AUTO 2.5 % (1.0-3.0); LYMPHOCYTES PERCENT AUTO 13.7 % (20.5-50.1); MONOCYTES PERCENT AUTO 7.8 % (2-8); NEUTROPHILS PERCENT AUTO 75.7 % (42.2-75.2); PLATELET COUNT,PLT 333 10^3/uL (150-450); RED BLOOD CELL COUNT 4.46 10^6/uL (4.6-6.2); WHITE BLOOD CELL COUNT,WBC 11.3 10^3/uL (5.0-10.0)
[2025-05-05 17:09] VITALS: BP 126/57; PULSE 86
== END 2025-05-05 19:56 | disposition swing bed (61) | DRG 690 ==
LOC: DL.ED 16:39 → DL.MS 18:11
PROVIDERS: ADMIT Student in an Organized Health Care Education/Training Program; ATTEND Internal Medicine
DX: N39.0 Urinary tract infection, site not specified (principal); I69.954 Hemiplegia and hemiparesis following unspecified cerebrovascular disease affecting left non-dominant side; U07.1 COVID-19; R53.1 Weakness; R62.7 Adult failure to thrive; I63.9 Cerebral infarction, unspecified; D64.9 Anemia, unspecified; E88.09 Other disorders of plasma-protein metabolism, not elsewhere classified; F17.200 Nicotine dependence, unspecified, uncomplicated; F10.90 Alcohol use, unspecified, uncomplicated; E78.5 Hyperlipidemia, unspecified; I10 Essential (primary) hypertension; E11.9 Type 2 diabetes mellitus without complications; Z98.890 Other specified postprocedural states; Z79.01 Long term (current) use of anticoagulants; Z79.4 Long term (current) use of insulin; Z79.899 Other long term (current) drug therapy; Z79.82 Long term (current) use of aspirin
CPT/HCPCS: 36415; 80053; 81001; 82550; 82607; 82728; 82746; 82947; 83036; 83540; 83550; 83735; 84100; 85025; 85610; 85730; 87086; 87088; 87186; 87493; 97110-GO; 97110-GP; 97116-GP; 97161-GP; 97165-GO; 97530-GO; 97530-GP; 99223; 99232; 99239; 99284; 99285; A9270-GY; J0696; J1815-GY

== ENCOUNTER 2025-05-05 09:15 | Inpatient (IN) | payer MEDICARE, MEDICAID ==
[2025-05-05] MEDS ORDERED: 50% Dextrose in Water 50 ML Syringe IVPUSH PRN (19:49)
[2025-05-05] MEDS ORDERED: Sodium Chloride 0.9% 10 ML Syringe FLUSH PRN ×2 (19:49)
[2025-05-05] MEDS ORDERED: Ondansetron 4 MG/2 ML SDV IVPUSH PRN (19:49)
[2025-05-05] MEDS: Sodium Chloride 0.9% 10 ML Syringe FLUSH SCH (21:03)
[2025-05-06 08:38] LABS: BASOPHILS PERCENT AUTO 0.6 % (0.0-1.0); EOSINOPHILS PERCENT AUTO 5.3 % (1.0-3.0); LYMPHOCYTES PERCENT AUTO 26.6 % (20.5-50.1); MONOCYTES PERCENT AUTO 9.8 % (2-8); NEUTROPHILS PERCENT AUTO 57.7 % (42.2-75.2); PLATELET COUNT,PLT 295 10^3/uL (150-450); RED BLOOD CELL COUNT 4.26 10^6/uL (4.6-6.2); WHITE BLOOD CELL COUNT,WBC 6.6 10^3/uL (5.0-10.0)
[2025-05-06] MEDS: Cholecalciferol (Vitamin D3) 25 MCG Tab PO SCH (08:50)
[2025-05-06 08:51] LABS: BLOOD UREA NITROGEN,BUN 25 mg/dL (7-18); CARBON DIOXIDE,CO2 28 mmol/L (21-32); CHLORIDE,CL 104 mmol/L (98-107); CREATININE 0.75 mg/dL (0.70-1.30); ESTIMATED GFR 98 mL/min (>=60); GLUCOSE RANDOM 133 mg/dL (70-99); POTASSIUM,K 4.6 mmol/L (3.5-5.1); SODIUM,NA 140 mmol/L (136-145)
[2025-05-08 06:32] LABS: BASOPHILS PERCENT AUTO 0.6 % (0.0-1.0); EOSINOPHILS PERCENT AUTO 4.9 % (1.0-3.0); LYMPHOCYTES PERCENT AUTO 27.2 % (20.5-50.1); MONOCYTES PERCENT AUTO 8.7 % (2-8); NEUTROPHILS PERCENT AUTO 58.6 % (42.2-75.2); PLATELET COUNT,PLT 302 10^3/uL (150-450); RED BLOOD CELL COUNT 3.89 10^6/uL (4.6-6.2); WHITE BLOOD CELL COUNT,WBC 8.2 10^3/uL (5.0-10.0)
[2025-05-10 08:43] VITALS: BP 144/63; PULSE 82
== END 2025-05-10 10:05 | disposition home or self-care (01) | DRG 948 ==
LOC: DL.MS 20:02
PROVIDERS: ADMIT Internal Medicine; ATTEND Internal Medicine
DX: R53.1 Weakness (principal); N39.0 Urinary tract infection, site not specified; I69.954 Hemiplegia and hemiparesis following unspecified cerebrovascular disease affecting left non-dominant side; R62.7 Adult failure to thrive; E11.9 Type 2 diabetes mellitus without complications; I10 Essential (primary) hypertension; H54.7 Unspecified visual loss; R19.7 Diarrhea, unspecified; K59.00 Constipation, unspecified; J44.9 Chronic obstructive pulmonary disease, unspecified; I48.91 Unspecified atrial fibrillation; E78.00 Pure hypercholesterolemia, unspecified; D64.9 Anemia, unspecified; E88.09 Other disorders of plasma-protein metabolism, not elsewhere classified; F17.200 Nicotine dependence, unspecified, uncomplicated; F10.90 Alcohol use, unspecified, uncomplicated; Z79.01 Long term (current) use of anticoagulants; Z79.899 Other long term (current) drug therapy; Z98.890 Other specified postprocedural states
CPT/HCPCS: 36415; 80048; 82947; 83735; 85025; 97110-GO; 97110-GP; 97161-GP; 97165-GO; 97530-GO; 97530-GP; 99306; 99310; 99316; A9270-GY